=== PATIENT | male | born 1985 | race Caucasian/White ===

== ENCOUNTER 2016-09-10 22:05 | Emergency (ER) | payer OTHER ==
[2016-09-10 22:13] VITALS: BP 151/87; PULSE 117; TEMP 98.8; BMI 36.9
[2016-09-11] MEDS ORDERED: predniSONE 20 MG TABLET (UD) PO ONE (01:05)
[2016-09-11] MEDS ORDERED: ALBUTEROL SO4 2.5/IPRATROPIUM 0.5 INH SOL 3 ML VIAL.NEB. NEB ONE ×2 (01:05→01:12)
--- NOTE | 2016-09-11 01:11 | PDOC ---
History of Present Illness - General Chief Complaint: Respiratory Stated Complaint: CHEST PAIN Time Seen by Provider: 09/10/16 23:04 History Source: Patient Exam Limitations: No Limitations - History of Present Illness Initial Comments: 09/11/16 01:06 31 yo Male patient presents to ED c/o "asthma acting up." Patient reports having a cold x 1 week with body aches and sweats. He states using his albuterol inhaler with minimal relief. Denies fever, CP, abd pain, n/v/d, rash or any other complaints at this time. Timing/Duration: reports: getting worse, week Severity: reports: mild Possible Cause: Yes: occasional episodes Modifying Factors: improves with: albuterol inhaler Associated Symptoms: reports: shortness of breath, wheezing. denies: nasal congestion Past History - Travel Traveled outside of the country in the last 30 days: No Close contact w/someone who was outside of country & ill: No - Past Medical History Allergies/Adverse Reactions: Allergies Allergy/AdvReac Type Severity Reaction Status Date / Time No Known Allergies Allergy Verified 09/10/16 22:10 Home Medications: Ambulatory Orders Albuterol Sulfate Inhaler - [Ventolin HFA Inhaler -] 2 inh IH PRN PRN #1 inhaler 09/11/16 Prednisone 10 mg PO ASDIR #16 tablet 09/11/16 Anemia: Yes Asthma: Yes - Psycho/Social/Smoking Cessation Hx Anxiety: No Suicidal Ideation: No Smoking Status: No Smoking History: Never smoked Have you smoked in the past 12 months: No Number of Cigarettes Smoked Daily: 0 Hx Alcohol Use: No Drug/Substance Use Hx: No Substance Use Type: None Respiratory Specific PMHX - Complaint Specific PMHX Angina: No Bronchitis: No Pneumonia: No Pulmonary Embolus: No TB (Tuberculosis): No Review of Systems - Review of Systems Able to Perform ROS?: Yes Is the patient limited Frisian proficient: No Constitutional: No: Chills, Fever Respiratory: Yes: Wheezing. No: Cough, Shortness of Breath Cardiac (ROS): No: Chest Pain All Other Systems: Reviewed and Negative *Physical Exam - Vital Signs Last Vital Signs Temp Pulse Resp BP Pulse Ox 98.8 F 117 H 20 151/87 98 09/10/16 22:11 09/10/16 22:11 09/10/16 22:11 09/10/16 22:11 09/10/16 22:11 - Physical Exam General Appearance: Yes: Nourished, Appropriately Dressed. No: Apparent Distress HEENT: positive: EOMI, CHARITY, Normal ENT Inspection, Normal Voice, Symmetrical, TMs Normal, Pharynx Normal Neck: positive: Trachea midline, Supple Respiratory/Chest: positive: Wheezing. negative: Labored Respiration Cardiovascular: positive: Regular Rhythm, Regular Rate Gastrointestinal/Abdominal: positive: Normal Bowel Sounds, Soft Lymphatic: negative: Adenopathy Musculoskeletal: positive: Normal Inspection. 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 intact, Fully Oriented, Alert, Normal Mood/ Affect, Normal Response, Motor Strength 5/5 *DC/Admit/Observation/Transfer Diagnosis at time of Disposition: Asthma Qualifiers: Asthma severity: mild persistent Asthma complication type: with acute exacerbation Qualified Code(s): J45.31 - Mild persistent asthma with (acute) exacerbation - Discharge Dispostion Disposition: HOME Condition at time of disposition: Good Admit: No - Prescriptions Prescriptions: Prednisone 10 mg PO ASDIR #16 tablet Albuterol Sulfate Inhaler - [Ventolin HFA Inhaler -] 2 inh IH PRN PRN #1 inhaler PRN Reason: Asthma - Patient Instructions Printed Discharge Instructions: Asthma -- Adult Print Language: BAHRAINI
[2016-09-11] MEDS ORDERED: predniSONE 20 MG TABLET (UD) ONE (01:12)
--- NOTE | 2016-09-12 11:23 | EKG ---
Test Reason : Blood Pressure : / mmHG Vent. Rate : 116 BPM Atrial Rate : 116 BPM P-R Int : 128 ms QRS Dur : 070 ms QT Int : 304 ms P-R-T Axes : 033 011 023 degrees QTc Int : 422 ms SINUS TACHYCARDIA WITH OCCASIONAL PREMATURE VENTRICULAR COMPLEXES WHEN COMPARED WITH ECG OF 30-APR-2016 00:28, PREMATURE VENTRICULAR COMPLEXES ARE NOW PRESENT Confirmed by BRANDON SINGH MD ([id number]) on 09/12/2016 11:22:36 AM Referred By: Confirmed By:BRANDON SINGH MD
== END 2016-09-11 01:26 | disposition home or self-care (01) ==
LOC: JER 22:05
PROC: 3E0F7GC Introduction of Other Therapeutic Substance into Respiratory Tract, Via Natural or Artificial Opening (ICD-10-PCS; principal; 2016-09-10)
DX: J45.31 Mild persistent asthma with (acute) exacerbation (principal)
CPT/HCPCS: 93005; 93010; 99283-25

== ENCOUNTER 2017-01-04 01:51 | Emergency (ER) | payer SELFPAY ==
[2017-01-04 01:56] VITALS: BP 152/89; PULSE 100; TEMP 98; BMI 36.9
[2017-01-04] MEDS ORDERED: PANTOPRAZOLE SODIUM 40 MG in SODIUM CHLORIDE 100 ML IVPB ONE (02:44)
[2017-01-04] MEDS ORDERED: MAG HYDROX/AL HYDROX/SIMETH 30 ML UNIT-DOSE CUP PO ONE (02:44)
--- NOTE | 2017-01-04 02:45 | PDOC ---
History of Present Illness - General History Source: Patient Exam Limitations: No Limitations - History of Present Illness Initial Comments: 01/04/17 03:11 The patient is a 31-year-old male with no significant past medical history, and presents to the emergency department with abdominal pain since tonight. The patient reports that the pain started when he was eating dinner. He reports the pain is located in the epigastric region, and is non-radiating. He reports the abdominal pain is worsened with inspiration and coughing. He denies any sick contacts. The patient denies chest pain, palpitations, headache and dizziness. The patient denies fever, chills, nausea, vomit, diarrhea and constipation. The patient denies dysuria, frequency, urgency and hematuria. Allergies: NKDA Other PMHx: asthma, eczema Past Surgical History: None reported Social History: No toxic habits reported PCP: Dr. Daron Renner <Fabi Morrison - Last Filed: 01/04/17 03:11> <Marlin Alex - Last Filed: 01/04/17 06:02> - General Chief Complaint: Nausea/Vomiting Stated Complaint: CHEST PAIN/ABD PAIN, SOB Time Seen by Provider: 01/04/17 02:20 Past History <Fabi Morrison - Last Filed: 01/04/17 03:11> - Past Medical History Anemia: No Asthma: Yes Other medical history: eczema - Psycho/Social/Smoking Cessation Hx Anxiety: No Suicidal Ideation: No Smoking Status: No Smoking History: Never smoked Have you smoked in the past 12 months: No Number of Cigarettes Smoked Daily: 0 Hx Alcohol Use: No Drug/Substance Use Hx: No Substance Use Type: None <Marlin Alex - Last Filed: 01/04/17 06:02> - Past Medical History Allergies/Adverse Reactions: Allergies Allergy/AdvReac Type Severity Reaction Status Date / Time No Known Allergies Allergy Verified 01/04/17 01:56 Home Medications: Ambulatory Orders Albuterol Sulfate Inhaler - [Ventolin HFA Inhaler -] 2 inh IH PRN PRN #1 inhaler 09/11/16 Prednisone 10 mg PO ASDIR #16 tablet 09/11/16 Pantoprazole Sodium [Protonix] 40 mg PO DAILY #30 tablet. 01/04/17 Review of Systems - Review of Systems Able to Perform ROS?: Yes Comments:: 01/04/17 03:11 CONSTITUTIONAL: Absent: fever, chills, diaphoresis, generalized weakness, malaise, loss of appetite HEENT: Absent: rhinorrhea, nasal congestion, throat pain, throat swelling, difficulty swallowing, mouth swelling, ear pain, eye pain, visual changes CARDIOVASCULAR: Absent: chest pain, syncope, palpitations, irregular heart rate, lightheadedness , peripheral edema RESPIRATORY: Present: (+) cough Absent: shortness of breath, dyspnea with exertion, orthopnea, wheezing, stridor , hemoptysis GASTROINTESTINAL: Present: (+) abdominal pain Absent: abdominal distension, vomiting, nausea, diarrhea, constipation, melena, hematochezia GENITOURINARY: Absent: dysuria, frequency, urgency, hesitancy, hematuria, flank pain, genital pain MUSCULOSKELETAL: Absent: myalgia, arthralgia, joint swelling SKIN: Absent: rash, itching, pallor HEMATOLOGIC/IMMUNOLOGIC: Absent: easy bleeding, easy bruising, lymphadenopathy, frequent infections ENDOCRINE: Absent: unexplained weight gain, unexplained weight loss, heat intolerance, cold intolerance NEUROLOGIC: Absent: headache, focal weakness or paresthesias, dizziness, unsteady gait, seizure, mental status changes, bladder or bowel incontinence PSYCHIATRIC: Absent: anxiety, depression, suicidal or homicidal ideation, hallucinations. <Fabi Morrison - Last Filed: 01/04/17 03:11> *Physical Exam - Vital Signs Last Vital Signs Temp Pulse Resp BP Pulse Ox 98 F 100 H 20 152/89 98 01/04/17 01:53 01/04/17 01:53 01/04/17 01:53 01/04/17 01:53 01/04/17 01:53 - Physical Exam Comments: 01/04/17 03:12 GENERAL: Well developed, well nourished. Awake and alert. No acute distress. HEENT: Normocephalic, atraumatic. PERRLA, EOMI. No conjunctival pallor. Sclera are non- icteric. Moist mucous membranes. Oropharynx is clear. NECK: Supple. Full ROM. No JVD. Carotid pulses 2+ and symmetric, without bruits. No thyromegaly. No lymphadenopathy. CARDIOVASCULAR: Regular rate and rhythm. No murmurs, rubs, or gallops. Distal pulses are 2+ and symmetric. PULMONARY: No evidence of respiratory distress. Lungs clear to auscultation bilaterally. No wheezing, rales or rhonchi. ABDOMINAL: Soft. Non-tender. Non-distended. No rebound or guarding. No organomegaly. Normoactive bowel sounds. MUSCULOSKELETAL Normal range of motion at all joints. No bony deformities or tenderness. No CVA tenderness. EXTREMITIES: No cyanosis. No clubbing. No edema. No calf tenderness. SKIN: Warm and dry. Normal capillary refill. No rashes. No jaundice. NEUROLOGICAL: Alert, awake, appropriate. Cranial nerves 2-12 intact. No deficits to light touch and temperature in face, upper extremities and lower extremities. No motor deficits in the in face, upper extremities and lower extremities. Normoreflexic in the upper and lower extremities. Normal speech. Toes are down- going bilaterally. Gait is normal without ataxia. PSYCHIATRIC: Cooperative. Good eye contact. Appropriate mood and affect. <Fabi Morrison - Last Filed: 01/04/17 03:11> - Vital Signs Last Vital Signs Temp Pulse Resp BP Pulse Ox 98 F 100 H 20 152/89 98 01/04/17 01:53 01/04/17 01:53 01/04/17 01:53 01/04/17 01:53 01/04/17 01:53 <Marlin Alex - Last Filed: 01/04/17 06:02> ED Treatment Course - LABORATORY CBC & Chemistry Diagram: 01/04/17 03:17 01/04/17 03:17 <Marlin Alex - Last Filed: 01/04/17 06:02> Medical Decision Making - Medical Decision Making 01/04/17 06:00 Pt is obese and comes after dinner out stating that he has epigastric discomfort. No vomiting or diarrhea or other signs of food poisoning. EKG normal. CXR normal; no diaprhagm pathology or free air on the CXR. Heart size normal. Pt's lungs are clear. Pt has normal labs and he is feeling better with protonix in the ER> He will be discharged home with his family and he can follow with PMD. <Marlin Alex - Last Filed: 01/04/17 06:02> *DC/Admit/Observation/Transfer - Attestations Scribe Attestion: 01/04/17 03:12 Documentation prepared by Fabi Morrison, acting as medical dosimetrist for Marlin Alex MD. <Fbai Morrison - Last Filed: 01/04/17 03:11> - Discharge Dispostion Admit: No <Marlin Alex - Last Filed: 01/04/17 06:02> Diagnosis at time of Disposition: Abdominal pain, Gastritis - Discharge Dispostion Disposition: HOME Condition at time of disposition: Improved - Prescriptions Prescriptions: Pantoprazole Sodium [Protonix] 40 mg PO DAILY #30 tablet.dr - Referrals Referrals: Daron Renner MD [Primary Care Provider] - - Patient Instructions Printed Discharge Instructions: DI for Abdominal Pain-Adult
[2017-01-04] MEDS ORDERED: PANTOPRAZOLE SODIUM 40 MG VIAL ONE (03:17)
[2017-01-04] MEDS ORDERED: MAG HYDROX/AL HYDROX/SIMETH 30 ML UNIT-DOSE CUP ONE (03:17)
[2017-01-04 03:26] LABS: BASOPHIL 0.3 % (0-2.0); EOSINOPHIL 2.8 % (0-4.5); MCHC 32.6 g/dl (32.0-35.9); MEAN PLT VOLUME 9.7 fl (7.5-11.1); NEUTROPHILS 82.9 % (42.8-82.8); PLATELET COUNT 264 K/MM3 (134-434); WHITE BLOOD COUNT 15.8 K/mm3 (4.0-10.0)
[2017-01-04 03:43] LABS: INR 0.98 (0.82-1.09); PROTHROMBIN TIME (PATIENT) 10.8 SEC (9.98-11.88)
[2017-01-04 03:49] LABS: ALBUMIN 3.6 g/dl (3.4-5.0); AMYLASE 31 U/L (25-115); ANION GAP 9 (8-16); BILIRUBIN,TOTAL 0.2 mg/dL (0.2-1.0); CALCIUM 9.2 mg/dL (8.5-10.1); CO2 26 mmol/L (21-32); COCKROFT - GAULT 188.99; CREATININE 0.9 mg/dL (0.7-1.3); GLUCOSE,RANDOM 108 mg/dL (74-106); SGOT/AST 17 U/L (15-37); SGPT/ALT 28 U/L (12-78); TOT PROT 7.4 g/dl (6.4-8.2)
[2017-01-04 03:50] LABS: ALK PHOS 89 U/L (45-117); TROPONIN I < 0.02 ng/ml (0.00-0.05)
--- NOTE | 2017-01-05 00:12 | EKG ---
Test Reason : Blood Pressure : / mmHG Vent. Rate : 087 BPM Atrial Rate : 087 BPM P-R Int : 130 ms QRS Dur : 088 ms QT Int : 356 ms P-R-T Axes : 052 053 044 degrees QTc Int : 428 ms NORMAL SINUS RHYTHM WITH SINUS ARRHYTHMIA NORMAL ECG WHEN COMPARED WITH ECG OF 10-SEP-2016 22:14, PREMATURE VENTRICULAR COMPLEXES ARE NO LONGER PRESENT Confirmed by MACRINA MCLEOD, ANASTACIO ([id number]) on 01/05/2017 12:11:55 AM Referred By: Confirmed By:ANASTACIO SCHRADER MD
== END 2017-01-04 04:42 | disposition home or self-care (01) ==
LOC: JER 01:51
PROC: 3E033GC Introduction of Other Therapeutic Substance into Peripheral Vein, Percutaneous Approach (ICD-10-PCS; principal; 2017-01-04)
DX: R10.13 Epigastric pain (principal); K29.70 Gastritis, unspecified, without bleeding
CPT/HCPCS: 36415; 71020-TC; 80053; 82150; 82550; 83690; 84484; 85025; 85610; 93005; 93010; 99282-25

== ENCOUNTER 2017-04-17 15:41 | Emergency (ER) | payer SELFPAY ==
[2017-04-17 15:55] VITALS: BP 127/72; PULSE 92; TEMP 98.6; BMI 36.9
[2017-04-17] MEDS ORDERED: predniSONE 20 MG TABLET (UD) PO ONE (16:13)
--- NOTE | 2017-04-17 16:13 | PDOC ---
History of Present Illness - General Chief Complaint: Asthma Stated Complaint: SOB (ASTHMA) Time Seen by Provider: 04/17/17 16:01 History Source: Patient Exam Limitations: No Limitations - History of Present Illness Initial Comments: CHIEF COMPLAINT: 31 y/o afebrile male with PMH asthma (no hospitalizations/ intubations) c/o dry cough, wheezing and SOB x 3 days. HISTORY OF PRESENT ILLNESS: The patient states he's had a dry cough and wheezing for 3 days and today he feels more short of breath. He denies f/c, n/v /d, MODI, neck pain, CP, abd pain, back pain. He took 2 albuterol nebs over the past [address] Daron Renner Vital signs on arrival are within normal limits. REVIEW OF SYSTEMS: GENERAL/CONSTITUTIONAL: Nofever/chills. No weakness. No weight change. HEAD, EYES, EARS, NOSE AND THROAT: No change in vision. No ear pain or discharge. No sore throat. CARDIOVASCULAR: +SOB. No chest pain. RESPIRATORY: +dry cough and wheezing. No hemoptysis. GASTROINTESTINAL: No abd pain, nausea, vomiting, diarrhea. GENITOURINARY: No dysuria, frequency, or change in urination. MUSCULOSKELETAL: No joint or muscle swelling or pain. No neck or back pain. SKIN: No rash or easy bruising. NEUROLOGIC: No headache, vertigo, loss of consciousness, or loss of sensation. PHYSICAL EXAM: GENERAL: The patient is awake, alert, and fully oriented, in no acute distress. He is morbidly obese, ambulatory, speaks in full sentences without difficulty. No cough throughout exam. HEAD: Normal with no signs of trauma. ENT: Pupils equal, round and reactive to light, extraocular movements intact, sclera anicteric, conjunctiva clear. Neck supple. LUNGS: Expiratory wheezing in posterior smith. Normal excursion. No respiratory distress or use of accessory muscles. CV: RRR, S1/S2, no MRG. Cap refill < 2 sec. ABDOMEN: Soft, non-distended, non-tender even to deep palpation, no hepatomegaly or splenomegaly, no masses. EXTREMITIES: Normal range of motion, no edema. NEUROLOGICAL: Normal speech, normal gait. CN II-XII grossly intact. PSYCH: Normal mood, normal affect. SKIN: Warm, dry, normal turgor, no rashes or lesions noted. Past History - Past Medical History Allergies/Adverse Reactions: Allergies Allergy/AdvReac Type Severity Reaction Status Date / Time No Known Allergies Allergy Verified 04/17/17 15:54 Home Medications: Ambulatory Orders Albuterol Sulfate Inhaler - [Ventolin HFA Inhaler -] 2 inh IH PRN PRN #1 inhaler 09/11/16 Pantoprazole Sodium [Protonix] 40 mg PO DAILY #30 tablet. 01/04/17 Methylprednisolone [Medrol Dose Antoine] 4 mg PO ASDIR #21 tablet 04/17/17 Anemia: No Asthma: Yes - Surgical History Abdominal Surgery: No Appendectomy: No Cardiac Surgery: No Cholecystectomy: No Gastric Stapling: No GI Surgery: No Lung Surgery: No Neurologic Surgery: No - Immunization History Immunization Up to Date: Yes - Psycho/Social/Smoking Cessation Hx Anxiety: No Suicidal Ideation: No Smoking Status: No Smoking History: Never smoked Have you smoked in the past 12 months: No Number of Cigarettes Smoked Daily: 0 Information on smoking cessation initiated: No Hx Alcohol Use: No Drug/Substance Use Hx: No Substance Use Type: None Respiratory Specific PMHX - Complaint Specific PMHX Angina: No Bronchitis: No Pneumonia: No Pulmonary Embolus: No TB (Tuberculosis): No *Physical Exam - Vital Signs Last Vital Signs Temp Pulse Resp BP Pulse Ox 98.6 F 92 H 20 127/72 99 04/17/17 15:53 04/17/17 15:53 04/17/17 15:53 04/17/17 15:53 04/17/17 15:53 Medical Decision Making - Medical Decision Making A/P: 31 y/o male with asthma exacerbation. Plan is as follows: 1. Duoneb x 3 2. PO Prednisone The patient states he feels much better after 3 treatments and prednisone. Repeat lung exam reveals CTA without wheezing. Will send medrol dose pack to pharmacy; instructed patient to take as prescribed and use his albuterol nebulizer every 4 hours for symptoms as well. Instructed him to return to the ER with any worsening or concerning symptoms The patient verbalizes understanding of all instructions, has no further questions and is awaiting discharge. *DC/Admit/Observation/Transfer Diagnosis at time of Disposition: Asthma exacerbation - Discharge Dispostion Disposition: HOME Condition at time of disposition: Improved - Referrals Referrals: Daron Renner MD [Primary Care Provider] - (Call Thursday) - Patient Instructions Printed Discharge Instructions: DI for Asthma -- Adult Additional Instructions: Discharge Instructions: -A prescription for steroids was sent to your pharmacy; please take as prescribed -Use your albuterol nebulizer every 4 hours for the next 24 hours -Return to the ER with any worsening or concerning symptoms.
[2017-04-17] MEDS ORDERED: predniSONE 20 MG TABLET (UD) ONE (16:14)
[2017-04-17] MEDS ORDERED: ALBUTEROL SO4 2.5/IPRATROPIUM 0.5 INH SOL 3 ML VIAL.NEB. NEB ONE ×2 (16:15→16:48)
[2017-04-17] MEDS: ALBUTEROL SO4 2.5/IPRATROPIUM 0.5 INH SOL 3 ML VIAL.NEB. NEB SCH ×3 (16:17→17:15)
== END 2017-04-17 17:49 | disposition home or self-care (01) ==
LOC: JERFT 15:41
PROC: 3E0F7GC Introduction of Other Therapeutic Substance into Respiratory Tract, Via Natural or Artificial Opening (ICD-10-PCS; principal; 2017-04-17)
DX: J45.901 Unspecified asthma with (acute) exacerbation (principal)
CPT/HCPCS: 99281-25

== ENCOUNTER 2017-07-25 20:44 | Emergency (ER) | payer SELFPAY ==
[2017-07-25 20:49] VITALS: BP 151/94; PULSE 98; TEMP 98.2; BMI 36.9
--- NOTE | 2017-07-25 22:17 | PDOC ---
History of Present Illness - General Chief Complaint: Toothache Stated Complaint: TOOTH ACHE Time Seen by Provider: 07/25/17 21:34 History Source: Patient Exam Limitations: No Limitations - History of Present Illness Initial Comments: 07/25/17 22:12 Patient is a [32-year-old male history of asthma presents for evaluation of left lower dental pain. Patient states he thought he felt a lump to left lower gumline, no fever, no difficulty swallowing, no respiratory difficulty. No facial edema.] Past Medical History: [Denies]. Allergies: No known allergies Medications: [] Family History: Non-contributory Social History: Denies smoking, alcohol use, or IVDU Vital signs on arrival are [notable for pulse of 96.] Review of Systems GENERAL/CONSTITUTIONAL: [No fever or chills. No weakness. No weight change.] HEAD, EYES, EARS, NOSE AND THROAT: [No change in vision. No ear pain or discharge. No sore throat. Lower posterior dental pain] CARDIOVASCULAR: [No chest pain or shortness of breath.] RESPIRATORY: [No cough, wheezing, or hemoptysis.] GASTROINTESTINAL: [No nausea, vomiting, diarrhea or constipation. No rectal bleeding.] GENITOURINARY: [No dysuria, frequency, or change in urination.] MUSCULOSKELETAL: [No joint or muscle swelling or pain. No neck or back pain.] SKIN AND BREASTS: [No rash or easy bruising.] NEUROLOGIC: [No headache, vertigo, loss of consciousness, or loss of sensation.] PSYCHIATRIC: [No depression or anxiety.] ENDOCRINE: [No increased thirst. No abnormal weight change.] HEMATOLOGIC/LYMPHATIC: [No anemia, easy bleeding, or history of blood clots.] ALLERGIC/IMMUNOLOGIC: [No hives or skin allergy. No latex allergy.] Physical Exam: GENERAL: [The patient is awake, alert, and fully oriented, in no acute distress. ] HEAD: [Normal with no signs of trauma.] EYES: [Pupils equal, round and reactive to light, extraocular movements intact, sclera anicteric, conjunctiva clear.] ENT: [Ears normal, nares patent, oropharynx clear without exudates. Moist mucous membranes. No uvula deviation. Pain to left lower first molar gumline, there is no visible abscess, there is increased redness to gumline no dental caries or fractures in dentition. ] NECK: [Normal range of motion, supple without lymphadenopathy, JVD, or masses.] LUNGS: [Breath sounds equal, clear to auscultation bilaterally. No wheezes, and no crackles.] HEART: [Regular rate and rhythm, normal S1 and S2 without murmur, rub or gallop. ] ABDOMEN: [Soft, nontender, normoactive bowel sounds. No guarding, no rebound. No masses. No bruising or abrasions] MUSCULOSKELETAL: [Normal range of motion, no edema. No clubbing or cyanosis. No cords, erythema, or tenderness. No CVA Tenderness with fist.] NEUROLOGICAL: [Cranial nerves II through XII grossly intact. Normal speech, normal gait.] SKIN: [Warm, Dry, normal turgor, no rashes or lesions noted.] 07/25/17 23:06 Past History - Past Medical History Allergies/Adverse Reactions: Allergies Allergy/AdvReac Type Severity Reaction Status Date / Time No Known Allergies Allergy Verified 04/17/17 15:54 Home Medications: Ambulatory Orders Oxycodone HCl/Acetaminophen [Percocet 5-325 mg Tablet] 1 tab PO Q4H #18 tablet MDD 6 07/25/17 Penicillin V Potassium [Pen Vee K -] 500 mg PO QID #40 tablet 07/25/17 Anemia: No Asthma: Yes COPD: No - Surgical History Abdominal Surgery: No Appendectomy: No Cardiac Surgery: No Cholecystectomy: No Gastric Stapling: No GI Surgery: No Lung Surgery: No Neurologic Surgery: No - Immunization History Immunization Up to Date: Yes - Suicide/Smoking/Psychosocial Hx Smoking Status: No Smoking History: Never smoked Have you smoked in the past 12 months: No Number of Cigarettes Smoked Daily: 0 Information on smoking cessation initiated: No Hx Alcohol Use: No Drug/Substance Use Hx: No Substance Use Type: None *Physical Exam - Vital Signs Last Vital Signs Temp Pulse Resp BP Pulse Ox 98.2 F 98 H 18 151/94 96 07/25/17 20:45 07/25/17 20:45 07/25/17 20:45 07/25/17 20:45 07/25/17 20:45 Medical Decision Making - Medical Decision Making 07/25/17 23:06 A/P: Patient here for evaluation of dental pain there is no visible abscess pain penitent area with redness. Most likely nonvisible abscess, I have offered patient Toradol he refused will give prescription for Pen-Vee K and Percocet, strict follow-up with dental in morning. Patient with no facial edema, no difficulty swallowing, no headache. No fever. I discussed the physical exam findings, ancillary test results and final diagnoses with the patient. I answered all of the patient's questions. The patient was satisfied with the care received and felt comfortable with the discharge plan and treatment plan. The patient will call []within [] hours to arrange follow-up and will return to the Emergency Department with any new, persistant or worsening symptoms. *DC/Admit/Observation/Transfer Diagnosis at time of Disposition: Dental abscess - Discharge Dispostion Disposition: HOME Condition at time of disposition: Stable Admit: No - Prescriptions Prescriptions: Oxycodone HCl/Acetaminophen [Percocet 5-325 mg Tablet] 1 tab PO Q4H #18 tablet MDD 6 Penicillin V Potassium [Pen Vee K -] 500 mg PO QID #40 tablet - Referrals - Patient Instructions Printed Discharge Instructions: DI for Tooth Abscess Additional Instructions: Warm salt water gargles Follow up with dental as soon as possible If any pain, facial swelling, difficulty swallowing or other concerns return to the ER - Post Discharge Activity
== END 2017-07-25 22:21 | disposition home or self-care (01) ==
LOC: JERFT 20:44
DX: K04.7 Periapical abscess without sinus (principal)
CPT/HCPCS: 99281-25

== ENCOUNTER 2017-08-01 21:49 | Emergency (ER) | payer SELFPAY ==
[2017-08-01 21:57] VITALS: BP 138/81; PULSE 98; TEMP 97.9; BMI 36.9
[2017-08-01] MEDS ORDERED: predniSONE 20 MG TABLET (UD) PO ONE (22:54)
[2017-08-01] MEDS ORDERED: ALBUTEROL SO4 2.5/IPRATROPIUM 0.5 INH SOL 3 ML VIAL.NEB. NEB ONE ×2 (22:54→22:57)
--- NOTE | 2017-08-01 22:54 | PDOC ---
History of Present Illness - General Chief Complaint: Sore Throat Stated Complaint: ASTHMA Time Seen by Provider: 08/01/17 22:23 History Source: Patient Exam Limitations: No Limitations - History of Present Illness Initial Comments: 08/02/17 00:21 32-year-old male with a history of asthma presents to the emergency department with 2 complaints. Patient states he's been wheezing for the past 20 minutes and have not used his albuterol/asthma medication as of yet. He denies fever, chills, headache, dizziness, lightheadedness, cough,facial pains, nasal congestion, rhinorrhea, neck stiffness/pain, chest pain, shortness of breath, abdominal pains. Patient has no history of intubation or hospitalization for asthma Patient states he's also complaining of a sore throat and attributes it to the spicy food that he eats. Patient states he constantly belches causing a spicy sensation to his throat which caused some soreness. Patient has no difficulty in swallowing or drinking fluids. Past History - Past Medical History Allergies/Adverse Reactions: Allergies Allergy/AdvReac Type Severity Reaction Status Date / Time No Known Allergies Allergy Verified 08/01/17 21:57 Home Medications: Ambulatory Orders Oxycodone HCl/Acetaminophen [Percocet 5-325 mg Tablet] 1 tab PO Q4H #18 tablet MDD 6 07/25/17 Penicillin V Potassium [Pen Vee K -] 500 mg PO QID #40 tablet 07/25/17 Prednisone 20 mg PO DAILY #10 tablet 08/01/17 Anemia: No Asthma: Yes COPD: No Other medical history: ecsema - Surgical History Abdominal Surgery: No Appendectomy: No Cardiac Surgery: No Cholecystectomy: No Gastric Stapling: No GI Surgery: No Lung Surgery: No Neurologic Surgery: No - Immunization History Immunization Up to Date: Yes - Suicide/Smoking/Psychosocial Hx Smoking Status: No Smoking History: Never smoked Have you smoked in the past 12 months: No Number of Cigarettes Smoked Daily: 0 Hx Alcohol Use: No Drug/Substance Use Hx: No Substance Use Type: None Review of Systems - Review of Systems Able to Perform ROS?: Yes Comments:: 08/02/17 00:22 CONSTITUTIONAL: Absent: fever, chills, diaphoresis, generalized weakness, malaise, loss of appetite HEENT: +sore throat Absent: rhinorrhea, nasal congestion, throat swelling, difficulty swallowing, mouth swelling, ear pain, eye pain, visual Changes CARDIOVASCULAR: Absent: chest pain, loss of consciousness, palpitations, irregular heart rate, peripheral edema RESPIRATORY: Absent: cough, shortness of breath, dyspnea with exertion, orthopnea, wheezing, stridor, hemoptysis GASTROINTESTINAL: Absent: abdominal pain, abdominal distension, nausea, vomiting, diarrhea, constipation, melena, hematochezia GENITOURINARY: Absent: dysuria, frequency, urgency, hesitancy, hematuria, flank pain, genital pain MUSCULOSKELETAL: Absent: myalgia, arthralgia, joint swelling SKIN: Absent: rash, itching, pallor Is the patient limited Lao proficient: No *Physical Exam - Vital Signs Last Vital Signs Temp Pulse Resp BP Pulse Ox 97.9 F 98 H 18 138/81 96 08/01/17 21:54 08/01/17 21:54 08/01/17 21:54 08/01/17 21:54 08/01/17 21:54 - Physical Exam Comments: 08/02/17 00:23 GENERAL: Well developed, well nourished. Awake and alert. No acute distress. HEENT: Normocephalic, atraumatic. PERRLA, EOMI. No conjunctival pallor. Sclera are non- icteric. Moist mucous membranes. Oropharynx is clear. NECK: Supple. Full ROM. No JVD. Carotid pulses 2+ and symmetric, without bruits. No thyromegaly. No lymphadenopathy. CARDIOVASCULAR: Regular rate and rhythm. No murmurs, rubs, or gallops. Distal pulses are 2+ and symmetric. PULMONARY: B/L lower lobe exp wheezes No evidence of respiratory distress. Lungs clear to auscultation bilaterally. No rales or rhonchi. ABDOMINAL: Soft. Non-tender. Non-distended. No rebound or guarding. No organomegaly. Normoactive bowel sounds. MUSCULOSKELETAL Normal range of motion at all joints. No bony deformities or tenderness. No CVA tenderness. EXTREMITIES: No cyanosis. No clubbing. No edema. No calf tenderness. SKIN: Warm and dry. Normal capillary refill. No rashes. No jaundice. *DC/Admit/Observation/Transfer Diagnosis at time of Disposition: GERD (gastroesophageal reflux disease) Qualifiers: Esophagitis presence: without esophagitis Qualified Code(s): K21.9 - Gastro- esophageal reflux disease without esophagitis Pharyngitis Qualifiers: Pharyngitis/tonsillitis etiology: unspecified etiology Qualified Code(s): J02.9 - Acute pharyngitis, unspecified Asthma Qualifiers: Asthma severity: mild Asthma persistence: intermittent Asthma complication type : uncomplicated Qualified Code(s): J45.20 - Mild intermittent asthma, uncomplicated - Discharge Dispostion Disposition: HOME Condition at time of disposition: Stable Admit: No - Prescriptions Prescriptions: Prednisone 20 mg PO DAILY #10 tablet - Referrals - Patient Instructions Printed Discharge Instructions: DI for Asthma -- Adult, DI for Gastroesophageal Reflux Disease (GERD), DI for Viral Pharyngitis Additional Instructions: Nexium Over the counter Gargle with salt water Complete your antibiotics Return to the ER for severe/recurrent shortness of breath - Post Discharge Activity
[2017-08-01] MEDS ORDERED: predniSONE 20 MG TABLET (UD) ONE (22:58)
== END 2017-08-02 00:06 | disposition home or self-care (01) ==
LOC: JER 21:49 → JERFT 21:49 → JER 08-02 00:06
PROC: 3E0F7GC Introduction of Other Therapeutic Substance into Respiratory Tract, Via Natural or Artificial Opening (ICD-10-PCS; principal; 2017-08-01)
DX: J02.9 Acute pharyngitis, unspecified (principal); J45.20 Mild intermittent asthma, uncomplicated; K21.9 Gastro-esophageal reflux disease without esophagitis
CPT/HCPCS: 87070; 87430; 99282-25

== ENCOUNTER 2018-08-14 21:01 | Emergency (ER) | payer OTHER ==
[2018-08-14] MEDS ORDERED: ASPIRIN 81 MG CHEWABLE TABLETS PO ONE (21:07)
[2018-08-14 21:11] VITALS: TEMP 98.8; BMI 36.9
[2018-08-14] MEDS ORDERED: ASPIRIN 81 MG CHEWABLE TABLETS ONE (21:18)
[2018-08-14 21:24] LABS: BASO % 0.7 % (0-2.0); EOS % 3.2 % (0-4.5); HEMOGLOBIN 15.6 GM/dL (11.7-16.9); LYMPH % 14.9 % (8-40); MCH 30.1 pg (25.7-33.7); MCHC 34.7 g/dl (32.0-35.9); MEAN CELL VOLUME 86.8 fl (80-96); MEAN PLT VOLUME 9.4 fl (7.5-11.1); MONO % 5.1 % (3.8-10.2); NEUT % 76.1 % (42.8-82.8); PLATELET COUNT 295 K/MM3 (134-434); RBC 5.19 M/mm3 (4.00-5.60); RDW 13.7 % (11.9-15.9)
[2018-08-14 21:35] LABS: INR 1.01 (0.83-1.09); PROTHROMBIN TIME (PATIENT) 11.9 SEC (9.7-13.0)
[2018-08-14 21:49] LABS: ALBUMIN 3.9 g/dl (3.4-5.0); ALK PHOS 108 U/L (45-117); ANION GAP 7 MMOL/L (8-16); BILIRUBIN,TOTAL 0.2 mg/dL (0.2-1); BLOOD UREA NITROGEN 14 mg/dL (7-18); CALCIUM 8.7 mg/dL (8.5-10.1); CHLORIDE 107 mmol/L (98-107); CO2 26 mmol/L (21-32); CREATININE 1.1 mg/dL (0.55-1.3); GLUCOSE,RANDOM 123 mg/dL (74-106); SGPT/ALT 34 U/L (13-61); SODIUM 140 mmol/L (136-145); TOT PROT 7.8 g/dl (6.4-8.2)
[2018-08-14 21:50] LABS: MAGNESIUM 2.2 mg/dL (1.8-2.4); POTASSIUM 4.1 mmol/L (3.5-5.1); SGOT/AST 17 U/L (15-37)
--- NOTE | 2018-08-14 22:00 | PDOC ---
History of Present Illness - General Chief Complaint: Chest Pain Stated Complaint: CHEST PAIN, DIFFICULTY BREATHING Time Seen by Provider: 08/14/18 21:14 History Source: Patient Exam Limitations: No Limitations - History of Present Illness Initial Comments: 08/15/18 01:07 Best Contact:[phone] PCP: fosterk name Pmhx: asthma/no h/o intubations/recent admission, eczema Pshx:0 Allergies:0 FH:0 Social Hx: Cigarettes/ 0 Alcohol/ social Drugs/0 33-year-old male presents to the emergency department complaining of midsternal chest pain and shortness of breath after walking 4 blocks at [facility]. Patient states while walking, he felt cold from the wind and immediately used his Ventolin inhaler approximately 10 times over the past 5 minutes without relief. Patient states his midsternal chest pain is described as 3/10 dull nonradiating intermittent discomfort which isexacerbated with deep inspiration and alleviated at restsupon arriving to the emergency department patient states. His pain has slowly subsided but was extremely upset because he was not bypassing triage to come to the main ER to be evaluated. Patient denies nausea/vomiting, fever/chills, headache, dizziness, lightheadedness, facial pains, rhinorrhea, nasal congestion, earache, sore throat, neck pain/stiffness, back pains, abdominal pains, flank pains, urinary symptoms, extremity numbness or tingling sensation, lower extremity swelling or pain. Patient states he feels a lot better since arriving to the emergency department. Past History - Past Medical History Allergies/Adverse Reactions: Allergies Allergy/AdvReac Type Severity Reaction Status Date / Time No Known Allergies Allergy Verified 08/14/18 21:04 Home Medications: Ambulatory Orders Albuterol Sulfate Inhaler - [Ventolin HFA Inhaler -] 1 - 2 inh PO QID #1 inhaler 04/23/18 Anemia: No Asthma: Yes COPD: No - Surgical History Abdominal Surgery: No Appendectomy: No Cardiac Surgery: No Cholecystectomy: No Gastric Stapling: No GI Surgery: No Lung Surgery: No Neurologic Surgery: No - Immunization History Immunization Up to Date: Yes - Suicide/Smoking/Psychosocial Hx Smoking Status: No Smoking History: Never smoked Have you smoked in the past 12 months: No Number of Cigarettes Smoked Daily: 0 Hx Alcohol Use: No Drug/Substance Use Hx: No Substance Use Type: None Cardiac Specific PMH - Complaint Specific PMHX Angina: No Pulmonary Embolus: No Review of Systems - Review of Systems Able to Perform ROS?: Yes Comments:: 08/14/18 22:28 CONSTITUTIONAL: Absent: fever, chills, diaphoresis, generalized weakness, malaise, loss of appetite HEENT: Absent: rhinorrhea, nasal congestion, throat pain, throat swelling, difficulty swallowing, mouth swelling, ear pain, eye pain, visual Changes CARDIOVASCULAR: +mid sternal cp on inspiration Absent: loss of consciousness, palpitations, irregular heart rate, peripheral edema RESPIRATORY: Absent: cough, shortness of breath, dyspnea with exertion, orthopnea, wheezing, stridor, hemoptysis GASTROINTESTINAL: Absent: abdominal pain, abdominal distension, nausea, vomiting, diarrhea, constipation, melena, hematochezia GENITOURINARY: Absent: dysuria, frequency, urgency, hesitancy, hematuria, flank pain, genital pain MUSCULOSKELETAL: Absent: myalgia, arthralgia, joint swelling SKIN: Absent: rash, itching, pallor HEMATOLOGIC/IMMUNOLOGIC: Absent: easy bleeding, easy bruising, lymphadenopathy, frequent infections ENDOCRINE: Absent: unexplained weight gain, unexplained weight loss, heat intolerance, cold intolerance NEUROLOGIC: Absent: headache, focal weakness or paresthesias, dizziness, unsteady gait, seizure, mental status changes, bladder or bowel incontinence PSYCHIATRIC: Absent: anxiety, depression, suicidal or homicidal ideation, hallucinations. 08/14/18 22:29 Is the patient limited Mohawk proficient: No *Physical Exam - Vital Signs Last Vital Signs Temp Pulse Resp BP Pulse Ox 98.8 F 103 H 18 165/83 96 08/14/18 21:04 08/14/18 21:15 08/14/18 21:15 08/14/18 21:15 08/14/18 21:15 - Physical Exam Comments: 08/14/18 22:28 GENERAL: Well developed, well nourished. Awake and alert. No acute distress. HEENT: Normocephalic, atraumatic. PERRLA, EOMI. No conjunctival pallor. Sclera are non- icteric. Moist mucous membranes. Oropharynx is clear. NECK: Supple. Full ROM. No JVD. Carotid pulses 2+ and symmetric, without bruits. No thyromegaly. No lymphadenopathy. CARDIOVASCULAR: Regular rate and rhythm. No murmurs, rubs, or gallops. Distal pulses are 2+ and symmetric. PULMONARY: No evidence of respiratory distress. Lungs clear to auscultation bilaterally. No wheezing, rales or rhonchi. ABDOMINAL: Soft. Non-tender. Non-distended. No rebound or guarding. No organomegaly. Normoactive bowel sounds. MUSCULOSKELETAL Normal range of motion at all joints. No bony deformities or tenderness. No CVA tenderness. EXTREMITIES: No cyanosis. No clubbing. No edema. No calf tenderness. SKIN: Excoriated skin to bilateral antecubital due to eczema Warm and dry. Normal capillary refill. No rashes. No jaundice. NEUROLOGICAL: Alert, awake, appropriate. Cranial nerves 2-12 intact. No deficits to light touch and temperature in face, upper extremities and lower extremities. No motor deficits in the in face, upper extremities and lower extremities. Normoreflexic in the upper and lower extremities. Normal speech. Toes are down- going bilaterally. Gait is normal without ataxia. PSYCHIATRIC: Cooperative. Good eye contact. Appropriate mood and affect. Heart Score/ECG Review - History History: Slightly suspicious - Electrocardiogram EKG: Normal - Age Age: >/= 65 - Risk Factors Risk Factors Heart Score: Yes Hx Obesity Based on the list above the patient has:: 1-2 risk factors - Troponin Troponin: </= normal limit - Score Heart Score - Total: 3 Moderate Sedation - Procedure Monitoring Vital Signs: Procedure Monitoring Vital Signs Temperature 98.8 F 08/14/18 21:04 Pulse Rate 103 H 08/14/18 21:15 Respiratory Rate 18 08/14/18 21:15 Blood Pressure 165/83 08/14/18 21:15 O2 Sat by Pulse Oximetry (%) 96 08/14/18 21:15 ED Treatment Course - LABORATORY CBC & Chemistry Diagram: 08/14/18 21:13 08/14/18 21:13 - ADDITIONAL ORDERS Additional order review: Laboratory Results 08/14/18 08/14/18 08/14/18 22:42 21:13 21:13 PT with INR 11.90 INR 1.01 Sodium 140 Potassium 4.1 Chloride 107 Carbon Dioxide 26 Anion Gap 7 L BUN 14 Creatinine 1.1 Creat Clearance w eGFR > 60 Random Glucose 123 H Calcium 8.7 Magnesium 2.2 Total Bilirubin 0.2 AST 17 ALT 34 Alkaline Phosphatase 108 Creatine Kinase 141 Troponin I < 0.02 Total Protein 7.8 Albumin 3.9 Urine Color Yellow Urine Appearance Clear Urine pH 5.0 Ur Specific [place] 1.030 Urine Protein Negative Urine Glucose (UA) 1+ H Urine Ketones Trace H Urine Blood Negative Urine Nitrite Negative Urine Bilirubin Negative Urine Urobilinogen Negative Ur Leukocyte Esterase Negative 08/14/18 21:13 RBC 5.19 MCV 86.8 MCHC 34.7 RDW 13.7 MPV 9.4 Neutrophils % 76.1 Lymphocytes % 14.9 D Monocytes % 5.1 Eosinophils % 3.2 D Basophils % 0.7 D - RADIOLOGY Radiology Studies Ordered: Category Date Time Status CHEST PA & LAT [RAD] Stat Radiology 08/14/18 21:07 Taken - Medications Given in the ED: ED Medications Discontinued Medications Generic Name Dose Route Start Last Admin Trade Name Freq PRN Reason Stop Dose Admin Aspirin 162 mg 08/14/18 21:07 08/14/18 21:20 Asa - PO 08/14/18 21:08 162 mg ONCE ONE Administration *DC/Admit/Observation/Transfer Diagnosis at time of Disposition: Atypical chest pain - Discharge Dispostion Condition at time of disposition: Stable Decision to Admit order: No - Referrals - Patient Instructions Printed Discharge Instructions: DI for Atypical Chest Pain Additional Instructions: Be sure to follow up with the mergers and acquisitions manager this week. Stress test Follow up with your physician Return to the ER for severe/persistent/worsening symptoms - Post Discharge Activity
[2018-08-14 23:20] LABS: URINE APPEARANCE CLEAR; URINE BILIRUBIN NEGATIVE (<2.0 mg/dL); URINE COLOR YELLOW; URINE GLUCOSE (UA) 1+ (NEGATIVE); URINE KETONE TRACE (NEGATIVE); URINE LEUK ESTERASE NEGATIVE (NEGATIVE); URINE NITRITE NEGATIVE (NEGATIVE); URINE PROTEIN NEGATIVE (NEGATIVE); URINE UROBILINOGEN NEGATIVE mg/dL (0.2-1.0)
[2018-08-15 03:17] VITALS: BP 158/80; PULSE 95
--- NOTE | 2018-08-15 17:17 | EKG ---
Test Reason : Blood Pressure : / mmHG Vent. Rate : 109 BPM Atrial Rate : 109 BPM P-R Int : 132 ms QRS Dur : 080 ms QT Int : 316 ms P-R-T Axes : 065 046 041 degrees QTc Int : 425 ms SINUS TACHYCARDIA OTHERWISE NORMAL ECG WHEN COMPARED WITH ECG OF 22-APR-2018 22:56, NO SIGNIFICANT CHANGE WAS FOUND Confirmed by DARREL RIZZO MD ([id number]) on 08/15/2018 5:16:39 PM Referred By: Confirmed By:DARREL RIZZO MD
== END 2018-08-15 03:18 | disposition home or self-care (01) ==
LOC: JER 21:01
DX: R07.89 Other chest pain (principal)
CPT/HCPCS: 36415; 71046-TC-FY; 80053; 81003; 82550; 83735; 84484; 85025; 85610; 93005; 93010; 99285-25

== ENCOUNTER 2018-12-06 20:53 | Emergency (ER) | payer OTHER ==
--- NOTE | 2018-12-06 21:19 | PDOC ---
Rapid Medical Evaluation Time Seen by Provider: 12/06/18 21:17 Medical Evaluation: Allergies Allergy/AdvReac Type Severity Reaction Status Date / Time No Known Allergies Allergy Verified 08/14/18 21:04 12/06/18 21:17 I have performed a brief in-person evaluation of this patient The patient present with a chief complaint of: dizziness and chest pain today. Reports cold symptoms now states blood pressure elevated today. Also reports shortness of breath Pertinent physical exam findings: NAD clear lungs bilaterally heart s1s2 no pedal edema I have ordered the following: ekg, chest xray, labs The patient will proceed to the ED for further evaluation. Discharge Disposition - Diagnosis Chest pain - Referrals - Patient Instructions - Post Discharge Activity
[2018-12-06 21:20] VITALS: BP 156/108; PULSE 116; TEMP 98.4; BMI 41.3
[2018-12-06 21:41] LABS: BASO % 0.3 % (0-2.0); HEMATOCRIT 47.2 % (35.4-49); HEMOGLOBIN 15.7 GM/dL (11.7-16.9); LYMPH % 13.2 % (8-40); MCH 29.4 pg (25.7-33.7); MCHC 33.3 g/dl (32.0-35.9); MEAN CELL VOLUME 88.3 fl (80-96); MONO % 5.8 % (3.8-10.2); NEUT % 79.7 % (42.8-82.8); PLATELET COUNT 270 K/MM3 (134-434); RBC 5.34 M/mm3 (4.00-5.60); RDW 13.4 % (11.9-15.9); WHITE BLOOD COUNT 11.3 K/mm3 (4.0-10.0)
[2018-12-06 22:03] LABS: ALK PHOS 112 U/L (45-117); ANION GAP 6 MMOL/L (8-16); BILIRUBIN,TOTAL 0.3 mg/dL (0.2-1); BLOOD UREA NITROGEN 14 mg/dL (7-18); CALCIUM 9.2 mg/dL (8.5-10.1); CHLORIDE 107 mmol/L (98-107); CO2 27 mmol/L (21-32); CREATININE 1.1 mg/dL (0.55-1.3); GLUCOSE,RANDOM 107 mg/dL (74-106); POTASSIUM 4.4 mmol/L (3.5-5.1); SGOT/AST 23 U/L (15-37); SGPT/ALT 42 U/L (13-61); SODIUM 140 mmol/L (136-145); TOT PROT 8.2 g/dl (6.4-8.2)
[2018-12-06 22:20] LABS: INR 0.95 (0.83-1.09); PROTHROMBIN TIME (PATIENT) 11.2 SEC (9.7-13.0)
[2018-12-06 22:23] LABS: ACTIVATED PTT 43.7 SECONDS (25.2-36.5)
[2018-12-06] MEDS ORDERED: ACETAMINOPHEN 500 MG TABLET (FP) PO ONE (23:10)
--- NOTE | 2018-12-06 23:10 | PDOC ---
History of Present Illness - General Chief Complaint: Chest Pain Stated Complaint: CHEST PAIN SHORTNESS OF BREATH Time Seen by Provider: 12/06/18 21:17 History Source: Patient Exam Limitations: No Limitations - History of Present Illness Initial Comments: 12/06/18 23:06 HISTORY OF PRESENT ILLNESS: 33-year-old male denies medical history presents emergency department for evaluation of 4 days of nasal congestion, sore throat, room spinning dizziness, moist cough and now with left-sided chest pain. Patient was concerned when he noted an elevated blood pressure over the past 2 days. Patient also reports sinus congestion. Patient had his annual physical last month the negative echocardiogram at that time. Patient's family history is significant for her mother with an ID at age 39. No recent travel or sick contacts. PAST MEDICAL HISTORY: Denies past medical history SURGICAL HISTORY: Denies ALLERGIES: No known drug allergies REVIEW OF SYSTEMS General/Constitutional: +fever. Denies weakness, weight change. HEENT: Denies change in vision. Denies ear pain or discharge. +sore throat. Cardiovascular: Left sided chest pain. Denies shortness of breath. Respiratory: Moist productive cough. Denies wheezing, or hemoptysis. Gastrointestinal: Denies nausea, vomiting, diarrhea or constipation. Denies rectal bleeding. Genitourinary: Denies dysuria, frequency, or change in urination. Musculoskeletal: +myalgias. Denies neck or back pain. Skin and breasts: Denies rash or easy bruising. Neurologic: Denies headache, vertigo, loss of consciousness, or loss of sensation. Psychiatric: Denies depression or anxiety. Endocrine: Denies increased thirst. Denies abnormal weight change. Hematologic/Lymphatic: Denies anemia, easy bleeding, or history of blood clots. Allergic/Immunologic: Denies hives or skin allergy. Denies latex allergy. PHYSICAL EXAM General Appearance: Well-appearing, appropriately dressed. No apparent distress , no intoxication. HEENT: EOMI, PERRLA, normal voice, TMs retracted bilaterally. No conjunctival pallor. No photophobia, scleral icterus. Oropharynx erythematous without lesions or exudate. Cobblestoning noted in the posterior. No nasal discharge present. Bilateral maxillary sinus tenderness. Neck: Supple. Trachea midline. No tenderness, rigidity, carotid bruit, stridor , or thyromegaly. Nontender anterior cervical lymphadenopathy present. Respiratory/Chest: Lungs CTAB. No shortness of breath, chest tenderness, respiratory distress, accessory muscle use. No crackles, rales, rhonchi, stridor , wheezing, dullness Cardiovascular: Tachycardic at 110 bpm apically. S1, S2. No JVD, murmur, rub or gallop. Vascular Pulses: Dorsalis-Pedis (R): 2+, Dorsalis-Pedis (L): 2+ Gastrointestinal/Abdominal: Normal bowel sounds. Abdomen soft, non-distended. No tenderness or rebound tenderness. No organomegaly, pulsatile mass, guarding, hernia, hepatomegaly, splenomegaly. Musculoskeletal/Extremities: Normal inspection. FROM of all extremities, normal capillary refill. Pelvis Stable. No CVA tenderness. No tenderness to extremities, pedal edema, swelling, erythema or deformity. Integumentary: Appropriate color, dry, warm. No cyanosis, erythema, jaundice or rash Neurologic: research program assistant II-XII intact. Fully oriented, alert. Appropriate mood/affect. Motor strength 5/5. No appreciable EOM palsy, facial droop or sensory deficit. Past History - Past Medical History Allergies/Adverse Reactions: Allergies Allergy/AdvReac Type Severity Reaction Status Date / Time No Known Allergies Allergy Verified 08/14/18 21:04 Home Medications: Ambulatory Orders Albuterol Sulfate Inhaler - [Ventolin HFA Inhaler -] 1 - 2 inh PO QID #1 inhaler 04/23/18 Anemia: No Asthma: Yes COPD: No - Surgical History Abdominal Surgery: No Appendectomy: No Cardiac Surgery: No Cholecystectomy: No Gastric Stapling: No GI Surgery: No Lung Surgery: No Neurologic Surgery: No - Immunization History Immunization Up to Date: Yes - Suicide/Smoking/Psychosocial Hx Smoking Status: No Smoking History: Never smoked Have you smoked in the past 12 months: No Number of Cigarettes Smoked Daily: 0 Hx Alcohol Use: No Drug/Substance Use Hx: No Substance Use Type: None Respiratory Specific PMHX - Complaint Specific PMHX Angina: No Bronchitis: No Pneumonia: No Pulmonary Embolus: No TB (Tuberculosis): No *Physical Exam - Vital Signs Last Vital Signs Temp Pulse Resp BP Pulse Ox 98.4 F 116 H 24 H 156/108 H 100 12/06/18 21:16 12/06/18 21:16 12/06/18 21:16 12/06/18 21:16 12/06/18 21:16 ED Treatment Course - LABORATORY CBC & Chemistry Diagram: 12/06/18 21:32 12/06/18 21:32 - ADDITIONAL ORDERS Additional order review: Laboratory Results 12/06/18 12/06/18 21:32 21:32 PT with INR 11.20 INR 0.95 PTT (Actin FS) 43.7 H Sodium 140 Potassium 4.4 Chloride 107 Carbon Dioxide 27 Anion Gap 6 L BUN 14 Creatinine 1.1 Creat Clearance w eGFR 76.63 Random Glucose 107 H Calcium 9.2 Total Bilirubin 0.3 AST 23 ALT 42 Alkaline Phosphatase 112 Troponin I < 0.02 Total Protein 8.2 Albumin 4.0 12/06/18 21:32 RBC 5.34 MCV 88.3 MCHC 33.3 RDW 13.4 MPV 9.0 Neutrophils % 79.7 Lymphocytes % 13.2 Monocytes % 5.8 Eosinophils % 1.0 Basophils % 0.3 Medical Decision Making - Medical Decision Making 12/06/18 23:09 A/P: 33-year-old male 4 days of upper respiratory symptoms and now left-sided chest pain Labs including cardiac profile Chest x-rays EKG Normal saline 1 L IV Tylenol 975 mg orally 12/07/18 01:51 Chest x-rays read by me: Angles clear. Cardiac silhouette is within normal limits. No focal factors consolidations noted. D-dimer negative. Cardiac enzymes negative 2. EKG reveals sinus rhythm with rate of 97. Normal intervals noted. Normal axis. No ST elevations, ST depressions or T-wave inversions present. I will discharge the patient home to follow-up at this primary doctor. Was recommended to the patient that he discuss outpatient stress test with this doctor for continued evaluation of his chest pain given his mother's early heart attack. 12/07/18 01:51 *DC/Admit/Observation/Transfer Diagnosis at time of Disposition: Atypical chest pain - Discharge Dispostion Disposition: HOME Condition at time of disposition: Stable Decision to Admit order: No - Referrals Referrals: Daron Renner MD [Primary Care Provider] - - Patient Instructions Printed Discharge Instructions: DI for Atypical Chest Pain Additional Instructions: Make an appointment with your primary doctor for reevaluation. Eat a low-salt well-balanced diet. Keep well-hydrated. Return to emergency department for any new or worsening symptoms. Thank you very much for choosing us to provide your emergent health care needs. - Post Discharge Activity Forms/Work/School Notes: Back to Work
--- NOTE | 2018-12-06 23:15 | PDOC ---
*Physical Exam - Vital Signs Last Vital Signs Temp Pulse Resp BP Pulse Ox 98.4 F 116 H 24 H 156/108 H 100 12/06/18 21:16 12/06/18 21:16 12/06/18 21:16 12/06/18 21:16 12/06/18 21:16 ED Treatment Course - LABORATORY CBC & Chemistry Diagram: 12/06/18 21:32 12/06/18 21:32 - ADDITIONAL ORDERS Additional order review: Laboratory Results 12/06/18 12/06/18 21:32 21:32 PT with INR 11.20 INR 0.95 PTT (Actin FS) 43.7 H Sodium 140 Potassium 4.4 Chloride 107 Carbon Dioxide 27 Anion Gap 6 L BUN 14 Creatinine 1.1 Creat Clearance w eGFR 76.63 Random Glucose 107 H Calcium 9.2 Total Bilirubin 0.3 AST 23 ALT 42 Alkaline Phosphatase 112 Troponin I < 0.02 Total Protein 8.2 Albumin 4.0 12/06/18 21:32 RBC 5.34 MCV 88.3 MCHC 33.3 RDW 13.4 MPV 9.0 Neutrophils % 79.7 Lymphocytes % 13.2 Monocytes % 5.8 Eosinophils % 1.0 Basophils % 0.3 Medical Decision Making - Medical Decision Making 12/06/18 23:14 Patient seen by the advanced practice provider under my direct supervision. Ancillary testing reviewed as necessary. I agree with plan as outlined by the advanced practice provider. *DC/Admit/Observation/Transfer Diagnosis at time of Disposition: Chest pain - Referrals Referrals: Daron Renner MD [Primary Care Provider] - - Patient Instructions - Post Discharge Activity
[2018-12-07] MEDS ORDERED: ACETAMINOPHEN 325 MG TABLET (FP) ONE (00:05)
--- NOTE | 2018-12-07 14:42 | EKG ---
Test Reason : Blood Pressure : / mmHG Vent. Rate : 097 BPM Atrial Rate : 097 BPM P-R Int : 134 ms QRS Dur : 074 ms QT Int : 330 ms P-R-T Axes : 053 038 027 degrees QTc Int : 419 ms NORMAL SINUS RHYTHM NORMAL ECG WHEN COMPARED WITH ECG OF 14-AUG-2018 21:07, NO SIGNIFICANT CHANGE WAS FOUND Confirmed by Justin Masters ([id number]) on 12/07/2018 2:42:05 PM Referred By: Confirmed By:Justin Masters
== END 2018-12-07 02:13 | disposition home or self-care (01) ==
LOC: JER 20:53
DX: R07.9 Chest pain, unspecified (principal); R06.9 Unspecified abnormalities of breathing; R03.0 Elevated blood-pressure reading, without diagnosis of hypertension
CPT/HCPCS: 36415; 71046-TC-FY; 80053; 82550; 84484; 85025; 85379; 85610; 85730; 93005; 93010; 99282-25

== ENCOUNTER 2018-12-13 14:20 | Emergency (ER) | payer OTHER ==
[2018-12-13 15:08] VITALS: BP 146/99; TEMP 98.4; BMI 18.7
--- NOTE | 2018-12-13 16:46 | PDOC ---
History of Present Illness - General Chief Complaint: Lightheaded Stated Complaint: HYPERTENSION/ DIZZY Time Seen by Provider: 12/13/18 16:37 History Source: Patient Past History - Past Medical History Allergies/Adverse Reactions: Allergies Allergy/AdvReac Type Severity Reaction Status Date / Time No Known Allergies Allergy Verified 12/13/18 15:04 Home Medications: Ambulatory Orders Albuterol Sulfate Inhaler - [Ventolin HFA Inhaler -] 1 - 2 inh PO QID #1 inhaler 04/23/18 Hydrochlorothiazide [Hctz -] 25 mg PO DAILY 12/13/18 Anemia: No Asthma: Yes COPD: No - Surgical History Abdominal Surgery: No Appendectomy: No Cardiac Surgery: No Cholecystectomy: No Gastric Stapling: No GI Surgery: No Lung Surgery: No Neurologic Surgery: No - Immunization History Immunization Up to Date: Yes - Suicide/Smoking/Psychosocial Hx Smoking Status: No Smoking History: Unknown if ever smoked Have you smoked in the past 12 months: No Number of Cigarettes Smoked Daily: 0 Hx Alcohol Use: No Drug/Substance Use Hx: No Substance Use Type: None Review of Systems - Review of Systems Constitutional: No: Chills, Fever Respiratory: No: Cough, Shortness of Breath Cardiac (ROS): Yes: Lightheadedness. No: Chest Pain, Palpitations, Syncope ABD/GI: No: Nausea, Vomiting Neurological: Yes: Headache, Dizziness. No: Numbness, Tingling, Weakness *Physical Exam - Vital Signs Last Vital Signs Temp Pulse Resp BP Pulse Ox 98.4 F 115 H 18 146/99 96 12/13/18 15:07 12/13/18 15:07 12/13/18 15:07 12/13/18 15:07 12/13/18 15:07 - Physical Exam General Appearance: Yes: Appropriately Dressed. No: Apparent Distress HEENT: positive: Normal Voice Neck: positive: Supple Respiratory/Chest: positive: Lungs Clear, Normal Breath Sounds. negative: Respiratory Distress Cardiovascular: positive: Regular Rate, S1, S2 Gastrointestinal/Abdominal: positive: Soft. negative: Tender Integumentary: positive: Dry, Warm Neurologic: positive: caretaker resort II-XII NML intact, Fully Oriented, Alert, Normal Mood/ Affect, Motor Strength 5/5 Medical Decision Making - Medical Decision Making 12/13/18 16:40 33-year-old male, history of hypertension, recently started on meds, here with dizziness, which patient states he's had for 1-2 weeks, intermittent and sometimes associated with headache. No vertigo, visual changes, focal weakness , URI symptoms, neck pain, fever or chills. No history of similar MODI. Was seen in ED for constellation of symptoms including headache and dizziness and had negative labs, EKG and chest x-ray. Patient requesting CT head at this time See exam Dizziness w/ MODI Neg w/u in ED 12/06 for similar complaints Here w/ ongoing symptoms Tachy to 115 at triage which improved to 90 on my reassessment, NAD w/ clear chest/lungs and no focal deficits (of note ddimer neg on last visit) Very call suspicion for an intracranial source, but will get neuro imaging at this time 12/13/18 17:59 CT head negative for acute abnormality. There is re-demonstration of an arachnoid cyst as per radiology, was seen on previous imaging. Patient made aware, states he was not informed of cyst in past. Will dc with PMD f/u *DC/Admit/Observation/Transfer Diagnosis at time of Disposition: Dizziness Headache Qualifiers: Headache type: unspecified Headache chronicity pattern: acute headache Intractability: not intractable Qualified Code(s): R51 - Headache - Discharge Dispostion Disposition: HOME Condition at time of disposition: Improved - Referrals Referrals: Daron Renner MD [Primary Care Provider] - - Patient Instructions Printed Discharge Instructions: DI for Headache, DI for Dizziness-Nonvertigo Additional Instructions: CT head was negative for any acute abnormality. There was an arachnoid cyst present on CT today, similar to prior images. Arachnoid cysts are the most common kind of brain cysts and are usually present at and usually causes no symptoms. There are not tumors If your headache with dizziness persist, please follow-up with Dr. Otto of neurology and your PMD if symptoms persist. - Post Discharge Activity Forms/Work/School Notes: Back to Work
[2018-12-13 18:12] VITALS: PULSE 96
== END 2018-12-13 18:39 | disposition home or self-care (01) ==
LOC: JER 14:20
DX: R51 Headache (principal); I10 Essential (primary) hypertension
CPT/HCPCS: 70450-TC; 99281-25

== ENCOUNTER 2020-04-29 21:20 | Emergency (ER) | payer OTHER ==
[2020-04-29 21:24] VITALS: BMI 36.9
[2020-04-29] MEDS ORDERED: LORazepam 2 MG TABLET PO ONE (22:00)
[2020-04-29] MEDS ORDERED: LORazepam 0.5 MG TABLET ONE (22:34)
[2020-04-29] MEDS ORDERED: LORazepam 1 MG TABLET PO ONE (22:48)
--- NOTE | 2020-04-29 23:41 | PDOC ---
History of Present Illness - General Chief Complaint: Shortness of Breath Stated Complaint: ASTHMA Time Seen by Provider: 04/29/20 21:24 - History of Present Illness Initial Comments: HPI Pt is 34yo M with PMH HTN, asthma, GERD, COVID+ in December who presents with palpitations, chest pain, and SOB. States that he has had similar symptoms for 1 month. Has seen his PCP and film or tape librarian (Dr. Riggs) for these symptoms. Was told by PCP this past Thursday that his blood work was normal. Saw who did echo and nuclear stress test, both of which were normal. Prior to today, his symptoms self-resolved after 1-2 hours, however, states that his episode has lasted for >3hours. States that he was at home watching tv at onset. Describes chest pain as left lateral chest wall, nonradiating, nonexertional, constant, 7/10, described as "pushing" sensation. No known triggers. Denies recent travel, sick contacts, hx of malignancy, recent immobility, hx of DVT/PE. PCP: Daron Renner Data Processing Mechanic: Keely PMH: see above PSH: denies Meds: Albuterol, symbicort, see chart Allergies: NKDA Social: denies tobacco, etoh, illicit substance use Review of Systems CONSTITUTIONAL:reports generalized weakness; denies fever, chills, diaphoresis, malaise, loss of appetite HEENT:denies rhinorrhea, nasal congestion, sore throat CARDIOVASCULAR:reports chest pain, palpitations RESPIRATORY:reports shortness of breath, denies cough, wheezing, hemoptysis GASTROINTESTINAL: denies abdominal pain, nausea, vomiting, diarrhea, constipation, melena, hematochezia GENITOURINARY:denies dysuria, frequency MUSCULOSKELETAL:denies myalgia, arthralgia, neck pain, back pain HEMATOLOGIC/IMMUNOLOGIC:denies easy bleeding, easy bruising ENDOCRINE: denies unexplained weight gain, unexplained weight loss NEUROLOGIC:denies headache, loss of consciousness, focal weakness or paresthesias, dizziness SKIN:denies rash, itching, pallor PSYCHIATRIC:denies anxiety Physical Exam General: awake, alert, fully oriented, in no acute distress, well developed, well nourished Head: normocephalic, atraumatic Eyes: PERRL, EOMI, anicteric sclera, conjunctiva clear ENT: hearing grossly normal, Moist mucous membranes, erythematous oropharynx Neck: supple, normal ROM, no LAD, JVD or masses Lung: decreased air entry on right side, CTA b/l, no crackles, wheezes; no distress, speaks full sentences Heart: RRR, normal S1, S2, no murmurs appreciated Abdomen: soft, non tender, normoactive bowel sounds, no guarding, rebound, masses Extremities: normal ROM, no edema, no erythema or tenderness, DP/PT pulses 2+ and symmetric, no clubbing, cyanosis Neuro: CN2-12 grossly intact, moves all extremities, normal speech, normal gait, sensation intact Skin: warm, dry, no rashes or lesions noted MDM Pt is 34yo M with PMH HTN, asthma, GERD who presents with palpitations, chest pain, and SOB. DDx including but not limited to: ACS, asthma exacerbation, PE Workup: labs, cxr, ekg TX: symptom control ED course - Gave 1.5mg ativan, patient states that chest pain and palpitations have improved. - Patient well appearing CXR - no pneumothorax or pleural effusion. midline airway, appropriate vascular markings, no blunting of costophrenic angle, no cardiomegaly, as read by ED staff EKG: normal sinus rhythm, HR 85bpm, MN 148ms, QRS 78ms, QTc 437ms, T inversion in III and avr Re-assessment: Patient stable for discharge. Pain controlled. Informed of all lab and imaging results. Given follow up instructions and strict return precautions. Patient expressed understanding and agree to plan Disposition: Discharge to home 04/30/20 00:01 05/02/20 18:54 Past History - Medical History Allergies/Adverse Reactions: Allergies Allergy/AdvReac Type Severity Reaction Status Date / Time No Known Allergies Allergy Verified 05/01/20 06:38 Home Medications: Ambulatory Orders NK [No Known Home Medication] 04/08/15 Albuterol Sulfate Inhaler - [Ventolin HFA Inhaler -] 1 - 2 inh PO QID #1 inhaler 04/23/18 Hydrochlorothiazide [Hctz -] 25 mg PO DAILY 12/13/18 Anemia: No Asthma: Yes COPD: No - Surgical History Abdominal Surgery: No Appendectomy: No Cardiac Surgery: No Cholecystectomy: No Gastric Stapling: No GI Surgery: No Lung Surgery: No Neurologic Surgery: No - Immunization History Immunization Up to Date: Yes - Psycho-Social/Smoking History Smoking Status: No Smoking History: Never smoked Have you smoked in the past 12 months: No Number of Cigarettes Smoked Daily: 0 Information on smoking cessation initiated: No - Substance Abuse Hx (Audit-C & DAST Scrn) How often the patient has a drink containing alcohol: Monthly or less Number of drinks the patient has on a typical day: 1 or 2 How often the patient has six or more drinks on one occasion: Never Score: In Men: 4 or > Positive; In Women: 3 or > Positive: 1 Screen Result (Pos requires Nsg. Audit-10AR): Negative In the last yr the pt used illegal drug/Rx for NonMed reason: No Score: Yes response is considered Positive: 0 Screen Result (Positive result requires Nsg. DAST-10): Negative *Physical Exam - Vital Signs Last Vital Signs Temp Pulse Resp BP Pulse Ox 98.8 F 114 H 22 H 130/82 98 04/29/20 21:21 04/29/20 21:21 04/29/20 21:21 04/29/20 21:21 04/29/20 21:21 ED Treatment Course - RADIOLOGY Radiology Studies Ordered: Category Date Time Status CHEST X-RAY PORTABLE* [RAD] Stat Radiology 04/29/20 21:55 Taken Discharge - Discharge Information Problems reviewed: Yes Clinical Impression/Diagnosis: Palpitations Chest pain Qualifiers: Chest pain type: unspecified Qualified Code(s): R07.9 - Chest pain, unspecified Condition: Stable Disposition: HOME - Admission No - Follow up/Referral Referrals: Daron Renner MD [Primary Care Provider] - - Patient Discharge Instructions Additional Instructions: You came into the ER palpitations, chest pressure, and shortness of breath. In the ED, you were evaluated with blood work, chest xray, and EKG. Your blood work was normal. Your chest xray was normal. Your EKG was normal. You were given Ativan, which improved your chest pain. You do not appear to be an acute need for immediate hospitalization. You were advised to follow up with your primary care doctor within 1 week. Come back to the ER immediately with any new or worsening concerns. Thank you for coming to the [facility] ER. We hope you feel better soon! - Post Discharge Activity
--- NOTE | 2020-04-30 00:22 | PDOC ---
Documentation entered by Alexis Hays SCRIBE, acting as scribe for Marlin Alex MD. Marlin Alex MD: This documentation has been prepared by the scribe, Alexis Hays SCRIBE, under my direction and personally reviewed by me in its entirety. I confirm that the documentation accurately reflects all work, treatment, procedures, and medical decision making performed by me. Attending Attestation - Resident Resident Name: HarperCheri - ED Attending Attestation I have performed the following: I have examined & evaluated the patient, The case was reviewed & discussed with the resident, I agree w/resident's findings & plan, Exceptions are as noted - HPI HPI: 04/29/20 23:59 The patient is a 34 year old male with a significant past medical history of HTN, asthma, eczema, GERD who presents to the emergency department for evaluation of shortness of breath, palpitations, and chest pain that began one month ago. The patient reports tpoday symptoms are constant for 3 hours an he has 7/10 left lateral chest pain. He has seen a long wall mining machine tender and PCP where he had a normal echo, normal stress test, and normal labs. He is scheduled for a chest CT tomorrow. The patient denies abdominal/back pain and cough. Denies fever, chills, nausea, vomiting, and/or any GI symptoms. Denies any symptoms. Denies any other symptoms. Allergies: NKDA Social Hx: None reported Surgical Hx: None reported PCP: Dr. Renner - Physicial Exam PE: 04/29/20 22:07 GENERAL: +obese Awake, alert, and fully oriented, in no acute distress HEAD: No signs of trauma EYES: PERRLA, EOMI, sclera anicteric, conjunctiva clear ENT: Auricles normal inspection, hearing grossly normal, nares patent, oropharynx clear without exudates. Moist mucosa NECK: Normal ROM, supple, no lymphadenopathy, JVD, or masses LUNGS: Breath sounds equal, clear to auscultation bilaterally. No wheezes, and no crackles HEART: Regular rate and rhythm, normal S1 and S2, no murmurs, rubs or gallops ABDOMEN: Soft, nontender, normoactive bowel sounds. No guarding, no rebound. No masses EXTREMITIES: Normal range of motion, no edema. No clubbing or cyanosis. No cords, erythema, or tenderness NEUROLOGICAL: Cranial nerves II through XII grossly intact. Normal speech, normal gait SKIN: Warm, Dry, normal turgor, no rashes or lesions noted. - Medical Decision Making 05/11/20 04:26 ED course - Gave 1.5mg ativan, patient states that chest pain and palpitations have improved. CXR - no pneumothorax or pleural effusion. midline airway, appropriate vascular markings, no blunting of costophrenic angle, no cardiomegaly, as read by ED staff EKG: normal sinus rhythm Patient stable for discharge. Pain controlled. Informed of all lab and imaging results. Given follow up instructions and strict return precautions. Discharge - Discharge Information Problems reviewed: Yes Clinical Impression/Diagnosis: Palpitations Chest pain Qualifiers: Chest pain type: unspecified Qualified Code(s): R07.9 - Chest pain, unspecified Condition: Stable Disposition: HOME - Follow up/Referral Referrals: Daron Renner MD [Primary Care Provider] - - Patient Discharge Instructions Additional Instructions: You came into the ER palpitations, chest pressure, and shortness of breath. In the ED, you were evaluated with blood work, chest xray, and EKG. Your blood work was normal. Your chest xray was normal. Your EKG was normal. You were given Ativan, which improved your chest pain. You do not appear to be an acute need for immediate hospitalization. You were advised to follow up with your primary care doctor within 1 week. Come back to the ER immediately with any new or worsening concerns. Thank you for coming to the [facility] ER. We hope you feel better soon! - Post Discharge Activity
[2020-04-30 00:32] VITALS: BP 129/79; PULSE 95; TEMP 98.9
--- NOTE | 2020-04-30 18:15 | EKG ---
Test Reason : Blood Pressure : / mmHG Vent. Rate : 085 BPM Atrial Rate : 085 BPM P-R Int : 148 ms QRS Dur : 078 ms QT Int : 368 ms P-R-T Axes : 048 007 014 degrees QTc Int : 437 ms NORMAL SINUS RHYTHM NORMAL ECG WHEN COMPARED WITH ECG OF 06-DEC-2018 21:15, NO SIGNIFICANT CHANGE WAS FOUND Confirmed by GAIL LEMOS MD ([id number]) on 04/30/2020 6:15:09 PM Referred By: Confirmed By:GAIL LEMOS MD
== END 2020-04-30 00:05 | disposition home or self-care (01) ==
LOC: JER 21:20
DX: R00.2 Palpitations (principal); R07.9 Chest pain, unspecified
CPT/HCPCS: 36415; 71045-TC-FY; 84484; 85379; 93005; 93010; 99285-25

== ENCOUNTER 2020-05-08 21:10 | Emergency (ER) | payer OTHER ==
[2020-05-08] MEDS ORDERED: MAG HYDROX/AL HYDROX/SIMETH -MYLANTA- ORAL SUSPENSION PO ONE (21:14)
[2020-05-08] MEDS ORDERED: HYOSCYAMINE SULFATE 0.125 MG *ODT PO ONE (21:14)
[2020-05-08] MEDS ORDERED: LIDOCAINE VISCOUS 2% ORAL/TOP 20 ML UNIT-DOSE CUP MM ONE (21:14)
[2020-05-08 21:16] VITALS: BP 126/83; PULSE 90; TEMP 97.9; BMI 36.9
--- NOTE | 2020-05-08 21:17 | PDOC ---
Rapid Medical Evaluation Time Seen by Provider: 05/08/20 21:12 Medical Evaluation: Allergies Allergy/AdvReac Type Severity Reaction Status Date / Time No Known Allergies Allergy Verified 05/01/20 06:38 05/08/20 21:15 CC: epigastric pain x 3 days with burping and food feeling it is coming back up, hx gerd but has not been on meds for "awhile". took peptobismol with no improvement, vss Exam: epigastric tenderness, vss Plan: Gi cocktail Discharge Disposition - Diagnosis Epigastric pain - Referrals - Patient Instructions - Post Discharge Activity
[2020-05-08] MEDS ORDERED: FAMOTIDINE 20 MG TABLET PO ONE (22:05)
--- NOTE | 2020-05-08 22:05 | PDOC ---
*Physical Exam - Vital Signs Last Vital Signs Temp Pulse Resp BP Pulse Ox 97.9 F 90 20 126/83 100 05/08/20 21:12 05/08/20 21:12 05/08/20 21:12 05/08/20 21:12 05/08/20 21:12 ED Treatment Course - LABORATORY CBC & Chemistry Diagram: 05/08/20 23:10 05/08/20 23:10 Medical Decision Making - Medical Decision Making 05/08/20 22:05 Patient seen by the advanced practice provider under my supervision. Ancillary testing reviewed as necessary. I agree with plan as outlined by the advanced practice provider. Discharge - Discharge Information Problems reviewed: Yes Clinical Impression/Diagnosis: Epigastric pain GERD (gastroesophageal reflux disease) Qualifiers: Esophagitis presence: esophagitis presence not specified Qualified Code(s): K21.9 - Gastro-esophageal reflux disease without esophagitis Abdominal pain Qualifiers: Abdominal location: upper abdomen, unspecified Qualified Code(s): R10.10 - Upper abdominal pain, unspecified Disposition: HOME - Additional Discharge Information Prescriptions: Famotidine [Pepcid] 40 mg PO DAILY #20 tablet - Follow up/Referral Referrals: Harjeet Seo MD [Staff Physician] - Call tomorrow Daron Renner MD [Primary Care Provider] - - Patient Discharge Instructions Patient Printed Discharge Instructions: DI for Gastroesophageal Reflux Disease (GERD) Additional Instructions: Eat small meals. Avoid acidic and fatty food. Eat meals 3 hours before bedtime. Take Pepcid as prescribed. Follow-up with gastroenterology as you have already scheduled. Return to the emergency room for any worsening symptoms - Post Discharge Activity Work/Back to School Note: Back to Work
--- NOTE | 2020-05-08 22:09 | PDOC ---
History of Present Illness - General Chief Complaint: Pain Stated Complaint: ABD PAIN Time Seen by Provider: 05/08/20 21:12 History Source: Patient - History of Present Illness Initial Comments: 05/08/20 23:22 34-year-old male With history of HTN, asthma, GERD, COVID+ in December Complaining of epigastric and right upper quadrant pain worse after eating with some burning to throat and reports tasting food.Denies nausea, vomiting, fever/chills, shortness of breath, chest pain, chest tightness. Past History - Medical History Allergies/Adverse Reactions: Allergies Allergy/AdvReac Type Severity Reaction Status Date / Time No Known Allergies Allergy Verified 05/01/20 06:38 Home Medications: Ambulatory Orders Albuterol Sulfate Inhaler - [Ventolin HFA Inhaler -] 1 - 2 inh PO QID #1 inhaler 04/23/18 Hydrochlorothiazide [Hctz -] 25 mg PO DAILY 12/13/18 Famotidine [Pepcid] 40 mg PO DAILY #20 tablet 05/09/20 Anemia: No Asthma: Yes COPD: No - Surgical History Abdominal Surgery: No Appendectomy: No Cardiac Surgery: No Cholecystectomy: No Gastric Stapling: No GI Surgery: No Lung Surgery: No Neurologic Surgery: No - Immunization History Immunization Up to Date: Yes - Psycho-Social/Smoking History Smoking Status: No Smoking History: Never smoked Have you smoked in the past 12 months: No Number of Cigarettes Smoked Daily: 0 - Substance Abuse Hx (Audit-C & DAST Scrn) How often the patient has a drink containing alcohol: Never Score: In Men: 4 or > Positive; In Women: 3 or > Positive: 0 Screen Result (Pos requires Nsg. Audit-10AR): Negative Review of Systems - Review of Systems Able to Perform ROS?: Yes Is the patient limited Sami proficient: No Constitutional: No: Symptoms Reported, See HPI, Chills, Diaphoresis, Fever, Loss of Appetite, Malaise, Night Sweats, Weakness, Weight Stable, Unintentional Wgt. Loss, Unexplained wgt Loss, Other ABD/GI: Yes: Nausea, Abdominal cramping. No: Symptoms Reported, See HPI, Abdominal Distended, Abd. Pain w/ defecation, Blood Streaked Bowels, Constipated, Diarrhea, Difficulty Swallowing, Poor Appetite, Poor Fluid Intake, Rectal Bleeding, Vomiting, Indigestion, Tarry Stools, Other : No: Symptoms Reported, See HPI, Burning, Dysuria, Discharge, Frequency, Flank Pain, Hematuria, Incontinence, Pain, Urgency, Testicular Mass, Testicular Swelling, Lesions, Testicular Pain, Other *Physical Exam - Vital Signs Last Vital Signs Temp Pulse Resp BP Pulse Ox 97.9 F 90 20 126/83 100 05/08/20 21:12 05/08/20 21:12 05/08/20 21:12 05/08/20 21:12 05/08/20 21:12 - Physical Exam General Appearance: Yes: Appropriately Dressed Respiratory/Chest: positive: Lungs Clear, Normal Breath Sounds Cardiovascular: positive: Regular Rhythm, Regular Rate Gastrointestinal/Abdominal: positive: Normal Bowel Sounds, Tender (epigastric pain, RUQ pain) Extremity: positive: Normal Capillary Refill, Normal Inspection, Normal Range of Motion Integumentary: positive: Normal Color, Dry, Warm Neurologic: positive: Fully Oriented, Alert, Normal Mood/Affect ED Treatment Course - LABORATORY CBC & Chemistry Diagram: 05/08/20 23:10 05/08/20 23:10 Medical Decision Making - Medical Decision Making 05/09/20 00:08 US: . Gallbladder polyp and gallstone noted. Gallbladder is otherwise unremarkable.. Mild fatty infiltration of the liver. Liver is otherwise unremarkable. Small right renal cyst. No other abnormality seen. 05/09/20 06:12 A: Abdominal pain P: labs US chest xray EKG Discharge - Discharge Information Problems reviewed: Yes Clinical Impression/Diagnosis: Epigastric pain GERD (gastroesophageal reflux disease) Qualifiers: Esophagitis presence: esophagitis presence not specified Qualified Code(s): K21.9 - Gastro-esophageal reflux disease without esophagitis Abdominal pain Qualifiers: Abdominal location: upper abdomen, unspecified Qualified Code(s): R10.10 - Upper abdominal pain, unspecified Disposition: HOME - Additional Discharge Information Prescriptions: Famotidine [Pepcid] 40 mg PO DAILY #20 tablet - Follow up/Referral Referrals: Daron Renner MD [Primary Care Provider] - Harjeet Seo MD [Staff Physician] - Call tomorrow - Patient Discharge Instructions Patient Printed Discharge Instructions: DI for Gastroesophageal Reflux Disease (GERD) Additional Instructions: Eat small meals. Avoid acidic and fatty food. Eat meals 3 hours before bedtime. Take Pepcid as prescribed. Follow-up with gastroenterology as you have already scheduled. Return to the emergency room for any worsening symptoms - Post Discharge Activity Work/Back to School Note: Back to Work
[2020-05-08] MEDS ORDERED: FAMOTIDINE 20 MG TABLET ONE (22:13)
[2020-05-08] MEDS ORDERED: MAG HYDROX/AL HYDROX/SIMETH 30 ML UNIT-DOSE CUP ONE (22:13)
[2020-05-08] MEDS ORDERED: LIDOCAINE VISCOUS 2% ORAL/TOP 20 ML UNIT-DOSE CUP ONE (22:13)
[2020-05-08 23:26] LABS: BASO % 0.2 % (0-2.0); EOS % 1.6 % (0-4.5); HEMATOCRIT 40.6 % (35.4-49); HEMOGLOBIN 13.6 GM/dL (11.7-16.9); MCH 29.8 pg (25.7-33.7); MCHC 33.4 g/dl (32.0-35.9); MEAN CELL VOLUME 89.4 fl (80-96); MEAN PLT VOLUME 9.2 fl (7.5-11.1); MONO % 4.1 % (3.8-10.2); NEUT % 83.1 % (42.8-82.8); PLATELET COUNT 266 K/MM3 (134-434); RBC 4.55 M/mm3 (4.00-5.60); RDW 13.6 % (11.9-15.9); WHITE BLOOD COUNT 13.6 K/mm3 (4.0-10.0)
[2020-05-09 00:05] LABS: ALBUMIN 3.8 g/dl (3.4-5.0); BILIRUBIN,TOTAL 0.3 mg/dL (0.2-1); BLOOD UREA NITROGEN 8.8 mg/dL (7-18); CALCIUM 9.3 mg/dL (8.5-10.1); CREATININE 0.9 mg/dL (0.55-1.3); POTASSIUM 3.8 mmol/L (3.5-5.1); TOT PROT 7.7 g/dl (6.4-8.2)
== END 2020-05-09 01:15 | disposition home or self-care (01) ==
LOC: JER 21:10
DX: R10.13 Epigastric pain (principal); K21.9 Gastro-esophageal reflux disease without esophagitis
CPT/HCPCS: 36415; 71046-TC-FY; 76705-TC; 80053; 83690; 85025; 99284-25

== ENCOUNTER 2022-07-01 11:40 | Inpatient (IN) | payer OTHER ==
[2022-07-01 12:26] VITALS: BMI 35.4
[2022-07-01] MEDS ORDERED: MAG HYDROX/AL HYDROX/SIMETH 30 ML UNIT-DOSE CUP PO ONE (13:12)
[2022-07-01] MEDS ORDERED: PANTOPRAZOLE 40 MG TABLET PO ONE ×2 (13:12→13:57)
[2022-07-01] MEDS ORDERED: MAG HYDROX/AL HYDROX/SIMETH 30 ML UNIT-DOSE CUP ONE (13:58)
[2022-07-01 14:39] LABS: HEMATOCRIT 43.1 % (35.4-49); HEMOGLOBIN 14.6 GM/dL (11.7-16.9); MCH 29.9 pg (25.7-33.7); MCHC 33.9 g/dl (32.0-35.9); MEAN CELL VOLUME 88.1 fl (80-96); MEAN PLT VOLUME 9.2 fl (7.5-11.1); PLATELET COUNT 319 10^3/uL (134-434); RBC 4.89 M/mm3 (4.00-5.60); RDW 13.5 % (11.9-15.9); WHITE BLOOD COUNT 11.2 K/mm3 (4.0-10.0)
[2022-07-01 14:42] LABS: EPI CELLS 3 /uL (0-25.1); HYALINE CASTS 2 /uL (0-3.1); URINE APPEARANCE TURBID; URINE BILIRUBIN 3+ (NEGATIVE); URINE COLOR ORANGE; URINE GLUCOSE (UA) NEGATIVE (NEGATIVE); URINE KETONE TRACE (NEGATIVE); URINE LEUK ESTERASE 1+ (NEGATIVE); URINE NITRITE POSITIVE (NEGATIVE); URINE PROTEIN 1+ (NEGATIVE); URINE RBC 18 /uL (0-23.9); URINE WBC 15 /uL (0-25.8)
[2022-07-01 14:57] LABS: CALCIUM 9.6 mg/dL (8.5-10.1)
[2022-07-01 14:58] LABS: ALBUMIN 3.9 g/dl (3.4-5.0); BLOOD UREA NITROGEN 13.4 mg/dL (7-18)
[2022-07-01 15:01] LABS: CREATININE 1.1 mg/dL (0.55-1.3)
[2022-07-01 15:03] LABS: BILIRUBIN,TOTAL 2.9 mg/dL (0.2-1); TOT PROT 7.6 g/dl (6.4-8.2)
[2022-07-01] MEDS ORDERED: SODIUM CHLORIDE 1,000 ML IV SCH (15:45)
[2022-07-01] MEDS: DEXTROSE 5%-0.45% SALINE 1,000 ML IV SCH (17:46)
[2022-07-01] MEDS ORDERED: ACETAMINOPHEN 1000 MG/100 ML BAG IVPB PRN (22:59)
[2022-07-02] MEDS: CEFTRIAXONE 1 GM in DEXTROSE 5%-WATER - 50 ML IVPB SCH ×2 (00:15→09:17)
[2022-07-02] MEDS ORDERED: INSULIN (LEVEMIR) 100 UNITS/ML UNITS SQ ONE (06:58)
[2022-07-02] MEDS: DEXTROSE 5%-0.45% SALINE 1,000 ML IV SCH (09:19)
[2022-07-02] MEDS ORDERED: ENOXAPARIN NA (PORCINE) 40 MG/0.4 ML DISP.SYRIN SQ SCH (10:00)
[2022-07-02] MEDS ORDERED: PANTOPRAZOLE SODIUM 40 MG VIAL IVPUSH SCH (10:00)
[2022-07-02] MEDS ORDERED: BUDESONIDE/FORMETEROL FUMARATE 80/4.5 mcg INHALER IH SCH ×2 (10:00→22:00)
[2022-07-02 10:18] LABS: BASO % 0.3 % (0-2.0); EOS % 3.3 % (0-4.5); HEMATOCRIT 42.2 % (35.4-49); HEMOGLOBIN 14.1 GM/dL (11.7-16.9); LYMPH % 11.6 % (8-40); MCH 29.7 pg (25.7-33.7); MCHC 33.4 g/dl (32.0-35.9); MEAN PLT VOLUME 9.4 fl (7.5-11.1); MONO % 7.8 % (3.8-10.2); PLATELET COUNT 270 10^3/uL (134-434); RBC 4.74 M/mm3 (4.00-5.60); RDW 13.4 % (11.9-15.9); WHITE BLOOD COUNT 8.2 K/mm3 (4.0-10.0)
[2022-07-02 10:41] LABS: ALBUMIN 3.4 g/dl (3.4-5.0); CALCIUM 9.2 mg/dL (8.5-10.1)
[2022-07-02 10:42] LABS: BLOOD UREA NITROGEN 8.7 mg/dL (7-18)
[2022-07-02 10:44] LABS: BILIRUBIN,DIRECT 1.5 mg/dL (0.0-0.2); CREATININE 1.1 mg/dL (0.55-1.3)
[2022-07-02 10:46] LABS: BILIRUBIN,TOTAL 2.6 mg/dL (0.2-1)
[2022-07-02] MEDS ORDERED: BUPIVACAINE HCL/PF 0.25% (2.5MG/ML) 10 ML VIAL ONE (11:52)
[2022-07-02] MEDS ORDERED: PROPOFOL 20 ML ONE (12:19)
[2022-07-02] MEDS ORDERED: MIDAZOLAM HCL 2 MG/2 ML SINGLE DOSE VIAL ONE (12:19)
[2022-07-02] MEDS ORDERED: ROCURONIUM BROMIDE 50 MG/5 ML SYRINGE ONE (12:19)
[2022-07-02] MEDS ORDERED: ONDANSETRON 4 MG/2 ML VIAL ONE (12:20)
[2022-07-02] MEDS ORDERED: LIDOCAINE HCL/PF 2% SDV 5ML VIAL ONE (12:20)
[2022-07-02] MEDS ORDERED: DEXAMETHASONE SOD PHOSPHATE 4 MG/1 ML VIAL ONE (12:20)
[2022-07-02] MEDS ORDERED: GLUCAGON 1 MG KIT ONE (13:25)
[2022-07-02] MEDS ORDERED: BUPIVACAINE HCL/PF 0.25% (2.5MG/ML) 10 ML VIAL IJ ONE (13:26)
[2022-07-02] MEDS ORDERED: KETOROLAC TROMETHAMINE 30 MG/1 ML VIAL ONE (13:30)
[2022-07-02] MEDS ORDERED: GLYCOPYRROLATE 0.2 MG/1 ML VIAL ONE (13:59)
[2022-07-02] MEDS ORDERED: NEOSTIGMINE METHYLSULFATE 0.5 MG/ML - 10 ML MDV ONE (13:59)
[2022-07-02] MEDS ORDERED: PROMETHAZINE HCL 25 MG/1 ML VIAL IVPUSH PRN ×2 (14:38→15:04)
[2022-07-02] MEDS ORDERED: oxyCODONE HCL 5 MG TABLET PO PRN ×4 (14:38→15:04)
[2022-07-02] MEDS ORDERED: ONDANSETRON 4 MG/2 ML VIAL IVPUSH PRN ×2 (14:38→15:04)
[2022-07-02] MEDS ORDERED: LACTATED RINGERS SOLUTION 1,000 ML IV SCH (14:45)
[2022-07-02] MEDS ORDERED: ACETAMINOPHEN 1000 MG/100 ML BAG IVPB PRN (15:04)
[2022-07-02] MEDS ORDERED: DEXTROSE 5%-0.45% SALINE 1,000 ML IV SCH (15:04)
[2022-07-02] MEDS ORDERED: ACETAMINOPHEN INJECTION 100 ML IVPB ONE (15:47)
[2022-07-02] MEDS ORDERED: PIPERACILLIN/TAZOBACTAM 3.375 GM VIAL IVPB ONE (16:08)
[2022-07-02] MEDS: PIPERACILLIN/TAZOB 3.375 GM 3.375 GM in DEXTROSE 5%-WATER - 50 ML IVPB SCH ×2 (16:08)
[2022-07-02] MEDS: LACTATED RINGERS SOLUTION 1,000 ML IV SCH ×2 (16:30→16:45)
[2022-07-02 16:51] VITALS: RESP 18
[2022-07-03] MEDS: PIPERACILLIN/TAZOB 3.375 GM 3.375 GM in DEXTROSE 5%-WATER - 50 ML IVPB SCH (01:47)
[2022-07-03 05:08] VITALS: BP 137/66; PULSE 61; TEMP 98.1
[2022-07-03] MEDS ORDERED: CEFTRIAXONE 1 GM in DEXTROSE 5%-WATER - 50 ML IVPB SCH (10:00)
[2022-07-03] MEDS ORDERED: PANTOPRAZOLE SODIUM 40 MG VIAL IVPUSH SCH (10:00)
[2022-07-03] MEDS ORDERED: ENOXAPARIN NA (PORCINE) 40 MG/0.4 ML DISP.SYRIN SQ SCH (10:00)
== END 2022-07-03 07:47 | disposition short-term general hospital (02) | DRG 263 ==
LOC: JER 11:40 → JERBED 15:55 → J6S 22:20
PROVIDERS: ADMIT Internal Medicine; ATTEND Internal Medicine
PROC: BF13YZZ Fluoroscopy of Gallbladder and Bile Ducts using Other Contrast (ICD-10-PCS; 2022-07-02)
PROC: 0FT44ZZ Resection of Gallbladder, Percutaneous Endoscopic Approach (ICD-10-PCS; principal; 2022-07-02 12:00)
DX: K80.42 Calculus of bile duct with acute cholecystitis without obstruction (principal); N39.0 Urinary tract infection, site not specified; I10 Essential (primary) hypertension; R10.11 Right upper quadrant pain; R74.01 Elevation of levels of liver transaminase levels; K21.9 Gastro-esophageal reflux disease without esophagitis
CPT/HCPCS: 36415; 74181-TC; 76000-TC-FY; 76705-TC; 80053; 80076; 81003; 83690; 84484; 85025; 85027; 88304-TC; 93005; 93010; 94760; 99285-25; C9803-CS; U0003; U0005

== ENCOUNTER 2022-07-17 17:48 | Emergency (ER) | payer OTHER ==
[2022-07-17 18:04] VITALS: RESP 18; TEMP 98.1; BMI 35.4
[2022-07-17] MEDS ORDERED: KETOROLAC TROMETHAMINE 15 MG/ML VIAL IVPUSH ONE (19:38)
[2022-07-17] MEDS ORDERED: KETOROLAC TROMETHAMINE 15 MG/ML VIAL ONE (19:51)
[2022-07-17 20:02] LABS: BASO % 0.5 % (0-2.0); EOS % 6.3 % (0-4.5); HEMATOCRIT 43.9 % (35.4-49); HEMOGLOBIN 14.6 GM/dL (11.7-16.9); LYMPH % 9.1 % (8-40); MCH 29.7 pg (25.7-33.7); MCHC 33.2 g/dl (32.0-35.9); MEAN CELL VOLUME 89.2 fl (80-96); MEAN PLT VOLUME 9.3 fl (7.5-11.1); MONO % 5.2 % (3.8-10.2); NEUT % 78.9 % (42.8-82.8); PLATELET COUNT 411 10^3/uL (134-434); RBC 4.93 M/mm3 (4.00-5.60); RDW 13.7 % (11.9-15.9); WHITE BLOOD COUNT 14.4 K/mm3 (4.0-10.0)
[2022-07-17 20:20] LABS: CALCIUM 9.7 mg/dL (8.5-10.1)
[2022-07-17 20:21] LABS: ALBUMIN 3.9 g/dl (3.4-5.0); BLOOD UREA NITROGEN 14.6 mg/dL (7-18)
[2022-07-17 20:24] LABS: CREATININE 1.1 mg/dL (0.55-1.3)
[2022-07-17 20:25] LABS: TOT PROT 7.6 g/dl (6.4-8.2)
[2022-07-17 20:26] LABS: BILIRUBIN,TOTAL 0.6 mg/dL (0.2-1)
[2022-07-17 22:54] VITALS: BP 134/70; PULSE 70
== END 2022-07-17 22:54 | disposition home or self-care (01) ==
LOC: JER 17:48
PROC: 3E033GC Introduction of Other Therapeutic Substance into Peripheral Vein, Percutaneous Approach (ICD-10-PCS; principal; 2022-07-17)
DX: R07.89 Other chest pain (principal)
CPT/HCPCS: 36415; 71046-TC-FY; 80053; 84484; 85025; 85379; 93005; 93010; 96374; 99285-25

== ENCOUNTER 2023-12-19 08:54 | Emergency (ER) | payer OTHER ==
[2023-12-19 09:02] VITALS: BP 154/86; PULSE 69; RESP 16; TEMP 98.3; BMI 35.4
[2023-12-19] MEDS ORDERED: KETOROLAC TROMETHAMINE 30 MG/1 ML VIAL ONE (09:31)
[2023-12-19] MEDS: KETOROLAC TROMETHAMINE 30 MG/1 ML VIAL IM ONE (09:43)
[2023-12-19 09:50] LABS: EPI CELLS 2 /uL (0-25.1); HYALINE CASTS 0 /uL (0-3.1); URINE APPEARANCE CLOUDY; URINE BACTERIA 1 /uL (0-1359); URINE BILIRUBIN NEGATIVE (NEGATIVE); URINE COLOR YELLOW; URINE GLUCOSE (UA) NEGATIVE (NEGATIVE); URINE KETONE TRACE (NEGATIVE); URINE LEUK ESTERASE NEGATIVE (NEGATIVE); URINE NITRITE NEGATIVE (NEGATIVE); URINE PROTEIN TRACE (NEGATIVE); URINE RBC 1693 /uL (0-23.9); URINE UROBILINOGEN 0.2 mg/dL (0.2-1.0); URINE WBC 17 /uL (0-25.8)
[2023-12-19 11:41] LABS: HEMATOCRIT 45.9 % (35.4-49); HEMOGLOBIN 15.3 GM/dL (11.7-16.9); MCH 29.7 pg (25.7-33.7); MCHC 33.3 g/dl (32.0-35.9); MEAN CELL VOLUME 89.4 fl (80-96); MEAN PLT VOLUME 8.5 fl (7.5-11.1); PLATELET COUNT 311 10^3/uL (134-434); RBC 5.14 M/mm3 (4.00-5.60); RDW 13.8 % (11.9-15.9); WHITE BLOOD COUNT 20.5 K/mm3 (4.0-10.0)
[2023-12-19 11:55] LABS: POTASSIUM 4.3 mmol/L (3.5-5.1)
[2023-12-19 11:56] LABS: CALCIUM 9.4 mg/dL (8.5-10.1)
[2023-12-19 12:00] LABS: CREATININE 1.2 mg/dL (0.55-1.3)
[2023-12-19] MEDS ORDERED: TAMSULOSIN HCL 0.4 MG CAP ONE (12:04)
[2023-12-19] MEDS: TAMSULOSIN HCL 0.4 MG CAP PO ONE (12:07)
[2023-12-19 12:20] LABS: ANISOCYTOSIS 0; HELMET CELLS 0; HOWELL-JOLLY BODIES 0; MACROCYTOSIS 0; OVALOCYTE 0; ROULEAU 0; SICKELED CELLS 0; TARGET CELLS 0; TEAR DROP CELLS 0; TOXIC GRANULATION 0
== END 2023-12-19 12:22 | disposition home or self-care (01) ==
LOC: JER 08:54
PROC: 3E0233Z Introduction of Anti-inflammatory into Muscle, Percutaneous Approach (ICD-10-PCS; principal; 2023-12-19)
DX: N20.0 Calculus of kidney (principal); N50.811 Right testicular pain
CPT/HCPCS: 36415; 74176-TC; 76870-TC; 80048; 81003; 85025; 87086; 87491; 87591; 87661; 99284-25